=== PATIENT | male | born 1940 | race Caucasian/White ===

== ENCOUNTER → 2017-10-30 | Outpatient (CLI) | payer MEDICARE, OTHER, MEDICAID ==
[2017-10-30] MEDS: REGADENOSON 0.4 MG/5 ML DISP.SYRIN. IV (09:00)
== END | disposition home or self-care (01) ==
LOC: NM 15:55
DX: R06.09 Other forms of dyspnea (principal); I10 Essential (primary) hypertension; Z87.891 Personal history of nicotine dependence; Z79.01 Long term (current) use of anticoagulants
CPT/HCPCS: 78452; 93017; 96374; 96375; 96376; A9500; J2785

== ENCOUNTER 2018-09-10 06:43 | Outpatient (CLI) | payer MEDICARE, OTHER ==
[~2018-09-10] VITALS: Ht 185.4 cm; Wt 88.0 kg
[2018-09-10] VITALS (19 sets, daily range): BP systolic 78–118; BP diastolic 54–68
[2018-09-10 07:26] LABS: BASO # 0.1 x10^3/uL (0.0-0.2); BASO % 1 % (0-3); EOS # 0.3 x10^3/uL (0.0-0.7); EOS % 4 % (0-3); HEMOGLOBIN 13.5 g/dL (13.0-17.5); LYMPH # 1.6 x10^3/uL (1.0-4.8); LYMPH % 18 % (24-48); MEAN CORPUSCULAR HEMOGLOBIN 32 pg (25-35); MEAN CORPUSCULAR HGB CONC 35 g/dL (31-37); MEAN CORPUSCULAR VOLUME 94 fL (79-100); MONO % 12 % (0-9); NEUT # 5.6 x10^3uL (1.8-7.7); NEUT % 65 % (31-73); PLATELET COUNT 307 x10^3/uL (140-400); RED BLOOD COUNT 4.16 x10^6/uL (4.30-5.70); RED CELL DISTRIBUTION WIDTH 12.9 % (11.5-14.5); WHITE BLOOD COUNT 8.6 x10^3/uL (4.0-11.0)
[2018-09-10 07:33] LABS: PROTHROMBIN TIME PATIENT 12.9 SEC (11.7-14.0)
[2018-09-10] MEDS ORDERED: LISI1TAB7 PO (07:33)
[2018-09-10] MEDS ORDERED: AMLO10TA6 PO (07:33)
[2018-09-10] MEDS ORDERED: MIDAZOLAM HCL/PF 2 MG/2 ML VIAL. ONE (07:56)
[2018-09-10] MEDS ORDERED: fentaNYL PF VIAL 100 MCG/2 ML VIAL ONE (07:57)
[2018-09-10] MEDS ORDERED: NALOXONE 0.4 MG/ML VIAL. ONE (07:57)
[2018-09-10] MEDS ORDERED: FLUMAZENIL 0.5 MG/5 ML VIAL. IV ONE (07:57)
[2018-09-10] MEDS ORDERED: LIDOCAINE WITH 8.4% SOD BICARB 3 ML DISP.SYRIN. ONE ×2 (07:58→08:32)
[2018-09-10] MEDS ORDERED: fentaNYL PF VIAL 100 MCG/2 ML VIAL IV ONE (08:15)
[2018-09-10] MEDS ORDERED: LIDOCAINE WITH 8.4% SOD BICARB 3 ML DISP.SYRIN. IJ ONE ×2 (08:15→08:30)
[2018-09-10] MEDS ORDERED: IV NORMAL SALINE 1000ML BAG 1,000 ML IV ONE (09:00)
--- NOTE | 2018-09-10 11:08 | RAD ---
CT-guided biopsy, right middle lobe nodule 09/10/2018 Indication: Right middle lobe pulmonary nodule concerning for primary lung malignancy. Comparison study: Outside CT of the chest dated July 22, 2018 Discussion: The risks and benefits of the procedure were discussed the patient. Informed consent was obtained. A timeout procedure was performed. The right chest was prepped and draped using sterile barrier technique. CT imaging redemonstrates a rounded nodule in the right middle lobe, similar to prior exam. Once an appropriate skin entry site had been selected, 1% lidocaine without epinephrine was administered for local anesthesia. Under intermittent CT guidance a 17-gauge needle was advanced into the periphery of the nodule. Multiple 18-gauge core biopsy samples were obtained. A tewkh-ya-guabesan post biopsy pneumothorax was seen on repeat CT imaging. The anterior chest was then prepped and draped using sterile barrier technique. 1% lidocaine was administered for local anesthesia. A 5 Croatian sheath was advanced into the pleural space. The air was aspirated. After several minutes repeat imaging was performed which did not demonstrate significant reaccumulation of air. Sheath was removed. Sterile dressings were applied. The patient was taken to the recovery area for observation. Anesthesia: Local only Impression: 1. CT-guided biopsy, right middle lobe nodule 2. Post biopsy pneumothorax. Small caliber thoracostomy tube was placed, and the air was aspirated. No rapid recurrence of pneumothorax is identified on delayed imaging. Patient was transferred to the recovery area for observation and follow-up radiographs.
--- NOTE | 2018-09-10 13:55 | RAD ---
Single view of the chest. 09/10/2018 10:46 AM Indication: POST RIGHT LUNG BIOPSY Comparison: CT imaging during biopsy, earlier today Findings: Possible trace pneumothorax seen apically. This is significantly smaller than on chest CT images from earlier today. No pleural effusion is seen. Right basilar lung nodules grossly similar. Heart size is normal. Bony thorax is intact. Impression: Trace pneumothorax, decreased since CT imaging earlier today Electronically signed by: Duncan Kennedy MD (09/10/2018 1:52 PM) [facility]
--- NOTE | 2018-09-11 17:08 | PATHOLOGY ---
[facility] Accession Number: [id number] . 01 Material submitted: . RIGHT LUNG BIOPSY . 01 Clinical history: . Right lung mass . 02 Diagnosis: "Right lung BX", image-guided needle biopsy: - INVASIVE MODERATELY DIFFERENTIATED ADENOCARCINOMA (SEE COMMENT). . (CLW:sherin; 09/11/2018) QMS/09/11/2018 . 02 Comment: Sections show alveolated lung tissue with atypical / malignant glandular epithelial cells infiltrating through a desmoplastic stroma. A background lepidic pattern is also noted. Clinical and radiographic correlation is recommended. The case is co-reviewed with Dr. Fredi Nathan. The case is discussed with Dr. Davila on 09/11/2018 at 3:30 PM. . (CLW:sherin; 09/11/2018) . 02 Electronically signed: . Connie Ayoub MD, Pathologist NPI- [id number] . 01 Gross description: . Received in formalin labeled "Eduardo Ross, right lung BX," are 4 distinct needle cores of blankenship soft tissue ranging from 0.5 to 1.4 cm in length and measuring less than 0.1 cm each in diameter. The specimen is submitted entirely in cassette A1 through A3. (TSD; 09/10/2018) TOB/TOB . 02 Pathologist provided ICD-10: C34.91 . 02 CPT . 061537 Specimen Comment: A courtesy copy of this report has been sent to Specimen Comment: [phone], , . Specimen Comment: Report sent to ,DR DAVILA / DR CLAYTON Performed at: 01 [facility] [address] [place] [address] [address], [place], [place] [id number] MD Clarke Pretty MD Phone: [phone] Performed at: [address] [id number] MD Tony Nathan MD Phone: [phone]
== END 2018-09-10 11:44 | disposition home or self-care (01) ==
LOC: INTRAD 06:43
PROVIDERS: ATTEND Internal Medicine Critical Care Medicine
DX: C34.91 Malignant neoplasm of unspecified part of right bronchus or lung (principal); Z79.899 Other long term (current) drug therapy; Z79.01 Long term (current) use of anticoagulants
CPT/HCPCS: 32405; 36415; 71045; 77012; 85025; 85610; J3010; J7030; 99152; 99153

== ENCOUNTER → 2018-09-12 | Outpatient (CLI) | payer MEDICARE, OTHER ==
[2018-09-10 11:00] VITALS: BP 94/57
[~2018-09-12] MED LIST: AMLO10TA6 PO; LISI1TAB7 PO
--- NOTE | 2018-09-16 08:29 | RAD ---
FDG tumor localization scan, PET/CT, 09/12/2018: History: Right lung mass Following IV injection of 12.2 mCi of 18 F-FDG, imaging was performed from the skull base to the proximal thighs. The noncontrast CT component was performed for attenuation correction and anatomic localization purposes rather than for primary diagnosis. The patient's blood glucose level at the time of injection was 96 MG/DL. Physiologic activity is evident in the neck. No hypermetabolic neck lesion is seen. There is a 2 cm nodule in the posterolateral aspect of the right middle lobe as noted on the outside CT study. It is hypermetabolic with a maximum SUV of 12.9. No other hypermetabolic pulmonary abnormality is seen. No abnormal mediastinal or hilar FDG uptake is evident. Normal GI tract and urinary tract activity is present in the abdomen and pelvis. There are small, bilateral low density adrenal nodules. The outside CT study demonstrated low internal CT number is compatible with benign adenomas. Both nodules demonstrate low level FDG uptake. No hypermetabolic abdominal or pelvic lesion is seen. Incidental CT findings include the presence of complete opacification of the left maxillary sinus with partial opacification of the left ethmoid and frontal sinuses. There appears to be destruction of the medial wall of the left maxillary sinus with soft tissue extending into the left nasal cavity. This portion of the process is hypermetabolic with a maximum SUV of 6.3. Some of the left ethmoid and frontal densities are also hypermetabolic. Some of the material within the left maxillary sinus is not hypermetabolic. There is calcific plaquing of the coronary arteries and at the carotid bifurcations. Scattered degenerative changes are present in the spine. IMPRESSION: 1. Hypermetabolic right middle lobe pulmonary nodule compatible with a primary lung malignancy. 2. No PET/CT evidence of mediastinal or hilar extension. 3. Opacified left maxillary sinus with a hypermetabolic component extending into the left nasal cavity with partial opacification of the left ethmoid and frontal sinuses. While the findings may be due to chronic sinusitis or antrochoanal polyp, malignancy is also a possibility and ENT evaluation is suggested. MTDD
== END | disposition home or self-care (01) ==
LOC: PETSC 10:25
PROVIDERS: ATTEND Internal Medicine Critical Care Medicine
DX: C34.91 Malignant neoplasm of unspecified part of right bronchus or lung (principal); R91.1 Solitary pulmonary nodule; Z87.891 Personal history of nicotine dependence
CPT/HCPCS: 78815

== ENCOUNTER → 2018-10-10 | Outpatient (CLI) | payer MEDICARE, OTHER ==
[2018-09-10 11:00] VITALS: BP 94/57
--- NOTE | 2018-10-10 13:13 | CARD ---
MR#: [id number] Date of Study: 10/10/2018 Ordering Physician: GEM GARCIA, Referring Physician: GEM GARCIA, Tech: Angelica Garcia APPROVED REPORT EXAM: Two-dimensional and M-mode echocardiogram with Doppler and color Doppler. Other Information Quality : AverageHR: 73bpm INDICATION Pre-Op RISK FACTORS Hypertension Smoking 2D DIMENSIONS RVDd3.6 (2.9-3.5cm)Left Atrium(2D)3.6 (1.6-4.0cm) IVSd0.9 (0.7-1.1cm)Aortic Root(2D)3.1 (2.0-3.7cm) LVDd5.0 (3.9-5.9cm)LVOT Diameter2.3 (1.8-2.4cm) PWd0.9 (0.7-1.1cm)LVDs2.8 (2.5-4.0cm) FS (%) 43.6 %SV89.0 ml LVEF(%)74.6 (>50%) Aortic Valve AoV Peak Margarito.130.5cm/sAoV VTI24.4cm AO Peak GR.6.8mmHgLVOT Peak Margarito.113.8cm/s LVOT VTI 19.58cmAO Mean GR.3mmHg SANIYA (VMAX)2.08mz5THY (VTI)3.45cm2 Mitral Valve MV E Bqtxioqj52.7cm/sMV DECEL HLMZ228et MV A Lqxydeqw52.6cm/sMV TYV96or E/A Ratio0.9MVA (PHT)3.43cm2 TDI E/Lateral E'9.6E/Medial E'11.0 Pulmonary Valve PV Peak Vbfbcyye369.6cm/sPV Peak Grad.7mmHg Tricuspid Valve TR P. Bflehurb927kg/sRAP EXZQHOKR3ntBb TR Peak Gr.45hqYrFSEO11lrGp Pulmonary Vein S1 Qarciaai56.5cm/sD2 Rrxuxmyc50.7cm/s PVa fwokhtmp414tvdo LEFT VENTRICLE The left ventricle is normal size. There is normal left ventricular wall thickness. The left ventricu lar systolic function is normal. The Ejection Fraction is 60-65%. There is normal LV segmental wall m otion. RIGHT VENTRICLE The right ventricle is normal size. There is normal right ventricular wall thickness. The right ventr icular systolic function is normal. ATRIA The left atrium size is normal. The right atrium size is normal. The interatrial septum is intact wit h no evidence for an atrial septal defect or patent foramen ovale as noted on 2-D or Doppler imaging. AORTIC VALVE The aortic valve is thickened but opens well. Doppler and Color Flow revealed no significant aortic r egurgitation. There is no significant aortic valvular stenosis. MITRAL VALVE The mitral valve is normal in structure and function. There is no evidence of mitral valve prolapse. There is no mitral valve stenosis. Doppler and Color Flow revealed no mitral valve regurgitation note d. TRICUSPID VALVE The tricuspid valve is not well visualized. Doppler and Color Flow revealed trace tricuspid regurgita tion. There is no tricuspid valve stenosis. PULMONIC VALVE The pulmonic valve is not well visualized. Doppler and Color Flow revealed trace pulmonic valvular re gurgitation. GREAT VESSELS The aortic root is normal in size. The IVC is normal in size and collapses >50% with inspiration. PERICARDIAL EFFUSION There is no evidence of significant pericardial effusion. Critical Notification Critical Value: No <Conclusion> The left ventricular systolic function is normal. The Ejection Fraction is 60-65%. There is normal LV segmental wall motion. Trace tricuspid regurgitation. There is no evidence of significant pericardial effusion. Signed by : Tyler Ahuja, Electronically Approved : 10/10/2018 13:11:26
== END | disposition home or self-care (01) ==
LOC: ECHO 09:25
PROVIDERS: ATTEND Thoracic Surgery (Cardiothoracic Vascular Surgery)
DX: Z01.818 Encounter for other preprocedural examination (principal); I10 Essential (primary) hypertension; F17.200 Nicotine dependence, unspecified, uncomplicated
CPT/HCPCS: 93306

== ENCOUNTER → 2018-10-16 | Outpatient (CLI) | payer MEDICARE, OTHER ==
[2018-09-10 11:00] VITALS: BP 94/57
[~2018-10-16] MED LIST changes: +ACET325T9 PO; +AMIO200T4 PO; +ASPI325T8 PO; +METO25TA4 PO; +OXYC5TAB4 PO; +SENN-22 PO
[2018-10-16 14:06] LABS: BASO # 0.1 x10^3/uL (0.0-0.2); BASO % 1 % (0-3); EOS # 0.4 x10^3/uL (0.0-0.7); EOS % 4 % (0-3); HEMATOCRIT 38.5 % (39.0-53.0); HEMOGLOBIN 13.4 g/dL (13.0-17.5); LYMPH % 23 % (24-48); MEAN CORPUSCULAR HEMOGLOBIN 33 pg (25-35); MEAN CORPUSCULAR HGB CONC 35 g/dL (31-37); MEAN CORPUSCULAR VOLUME 94 fL (79-100); MONO # 0.8 x10^3/uL (0.0-1.1); MONO % 10 % (0-9); NEUT # 5.2 x10^3uL (1.8-7.7); NEUT % 61 % (31-73); PLATELET COUNT 286 x10^3/uL (140-400); RED BLOOD COUNT 4.08 x10^6/uL (4.30-5.70); WHITE BLOOD COUNT 8.5 x10^3/uL (4.0-11.0)
[2018-10-16 14:17] LABS: PROTHROMBIN TIME PATIENT 12.8 SEC (11.7-14.0)
[2018-10-16 14:32] LABS: CALCIUM 9.8 mg/dL (8.5-10.1); GFR 72.6
--- NOTE | 2018-10-16 15:03 | EKG ---
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
--- NOTE | 2018-10-16 16:27 | RAD ---
EXAM: PA and Lateral Views of the Chest DATE: 10/16/2018 3:01 PM INDICATION: post op lung biopsy COMPARISON: PET CT 09/12/2018. Radiograph 05/10/2018 FINDINGS: The heart is not enlarged. Mediastinal and hilar contours are stable. Nodular density projecting over the right lung consistent with known right lung mass. Emphysematous changes are seen. No lobar consolidation. No pleural effusion or pneumothorax. Biapical pleural/parenchymal scarring/thickening is seen. IMPRESSION: No pneumothorax Right lung nodular density consistent with known right lung mass. Electronically signed by: Festus Victoria MD (10/16/2018 4:23 PM) [facility]
== END | disposition home or self-care (01) ==
LOC: SURGPAT 13:11
PROVIDERS: ATTEND Thoracic Surgery (Cardiothoracic Vascular Surgery)
DX: Z01.818 Encounter for other preprocedural examination (principal)
CPT/HCPCS: 36415; 71046; 80048; 85025; 85610; 85730; 87641; 93005

== ENCOUNTER 2018-10-22 07:15 | Inpatient (IN) | payer MEDICARE ==
--- NOTE | 2018-10-21 13:43 | PDOC1 ---
History and Physical Date of Admission Date of Admission DATE: 10/22/18 TIME: 7:30 Identification/Chief Complaint Chief Complaint Lung Ca Source Source: Chart review, Patient History of Present Illness History of Present Illness Mr Ross is a 78-year-old male comes today for a right middle lobectomy for a newly diagnosed adenocarcinoma of the lung. This was an incidental finding on a CT which was performed for shortness of breath. The mass is in the periphery of the right middle lobe and measures 2 cm in maximum diameter. A CT-guided biopsy confirmed a moderately differentiated adenocarcinoma. He had a PET/CT which showed that the mass was FDG avid. There was no activity elsewhere in the mediastinum or distally. He denies any significant shortness of breath, cough, hemoptysis, weight loss, chest pain. He has excellent PFTs with an FEV1 of 2.69 L which is 73% predicted and a DLCO of 92%. Past Medical History Cardiovascular: HTN Pulmonary: COPD GI: No pertinent hx Heme/Onc: No pertinent hx Hepatobiliary: No pertinent hx Psych: No pertinent hx Rheumatologic: No pertinent hx Infectious disease: No pertinent hx ENT: No pertinent hx Renal/: No pertinent hx Endocrine: No pertinent hx Dermatology: No pertinent hx Past Surgical History Past Surgical History: Total knee replacement Family History Family History: No Significant Social History Smoke: Quit (6 months ago) ALCOHOL: none Drugs: None Current Medications Current Medications Current Medications Ondansetron HCl (Zofran) 4 mg PRN Q6HRS PRN IV NAUSEA/VOMITING; Start 10/22/18 at 07:00; Stop 10/23/18 at 06:59 Fentanyl Citrate (Fentanyl 2ml Vial) 25 mcg PRN Q5MIN PRN IV MILD PAIN; Start 10/22/18 at 07:00; Stop 10/23/18 at 06:59 Fentanyl Citrate (Fentanyl 2ml Vial) 50 mcg PRN Q5MIN PRN IV MODERATE TO SEVERE PAIN; Start 10/22/18 at 07:00; Stop 10/23/18 at 06:59 Morphine Sulfate (Morphine Sulfate) 1 mg PRN Q10MIN PRN IV SEVERE PAIN; Start 10/22/18 at 07:00; Stop 10/23/18 at 06:59 Ringer's Solution 1,000 ml @ 30 mls/hr Q24H IV ; Start 10/22/18 at 07:00; Stop 10/22/18 at 18:59 Lidocaine HCl (Xylocaine-Mpf 1% 2ml Vial) 2 ml PRN 1X PRN ID IV START; Start at 07:00; Stop 10/23/18 at 06:59 Hydromorphone HCl (Dilaudid) 0.5 mg PRN Q10MIN PRN IV SEV PAIN, Second choice; Start 10/22/18 at 07:00; Stop 10/23/18 at 06:59 Prochlorperazine Edisylate (Compazine) 5 mg PACU PRN PRN IV NAUSEA, MRX1; Start 10/22/18 at 07:00; Stop 10/23/18 at 06:59 Active Scripts Active Reported Amlodipine Besylate 10 Mg Tablet 10 Mg PO DAILY Lisinopril-Hctz 20-25 Mg Tab (Lisinopril/Hydrochlorothiazide) 1 Each Tablet 1 Tab PO DAILY Allergies Allergies: Coded Allergies: No Known Drug Allergies (Unverified , 10/22/18) ROS General: No: Chills, Night Sweats, Fatigue, Malaise, Appetite PSYCHOLOGICAL ROS: No: Anxiety, Behavioral Disorder, Concentration difficultie , Decreased libido, Depression, Disorientation, Hallucinations, Hostility, Irritablity, Memory difficulties, Mood Swings, Obsessive thoughts, Physical abuse, Sexual abuse, Sleep disturbances, Suicidal ideation Eyes: No Blurry vision, No Decreased vision, No Double vision, No Dry eyes, No Excessive tearing, No Eye Pain, No Itchy Eyes, No Loss of vision, No Photophobia , No Scotomata, No Uses contacts, No Uses glasses HEENT: No: Heacaches, Visual Changes, Hearing change, Nasal congestion, Nasal discharge, Oral lesions, Sinus pain, Sore Throat, Epistaxis, Sneezing, Snoring, Tinnitus, Vertigo, Vocal changes ALLERGY AND IMMUNOLOGY: No: Hives, Insect Bite Sensitivity, Itchy/Watery Eyes, Nasal Congestion, Post Nasal Drip, Seasonal Allergies Hematological and Lymphatic: No: Bleeding Problems, Blood Clots, Blood Transfusions, Brusing, Night Sweats, Pallor, Swollen Lymph Nodes ENDOCRINE: No: Breast Changes, Galactorrhea, Hair Pattern Changes, Hot Flashes , Malaise/lethargy, Mood Swings, Palpitations, Polydipsia/polyuria, Skin Changes , Temperature Intolerance, Unexpected Weight Changes Respiratory: No: Cough, Hemoptysis, Orthopnea, Pleuritic Pain, Shortness of breath, SOB with excertion, Sputum Changes, Stridor, Tachypnea, Wheezing Cardiovascular: No Chest Pain, No Palpitations, No Orthopnea, No Paroxysmal Noc. Dyspnea, No Edema, No Lt Headedness Gastrointestinal: No Nausea, No Vomiting, No Abdominal Pain, No Diarrhea, No Constipation, No Melena, No Hematochezia Genitourinary: No Dysuria, No Frequency, No Incontinence, No Hematuria, No Retention, No Discharge, No Urgency, No Pain, No Flank Pain Musculoskeletal: No Gait Disturbance, No Joint Pain, No Joint Stiffness, No Joint Swelling, No Muscle Pain, No Muscular Weakness, No Pain In:, No Swelling In: Neurological: No Behavorial Changes, No Bowel/Bladder ControlChng, No Confusion , No Dizziness, No Gait Disturbance, No Headaches, No Impaired Coord/balance, No Memory Loss, No Numbness/Tingling, No Seizures, No Speech Problems, No Tremors, No Visual Changes, No Weakness Skin: No Dry Skin, No Eczema, No Hair Changes, No Lumps, No Mole Changes, No Mottling, No Nail Changes, No Pruritus, No Rash, No Skin Lesion Changes, No Acne Physical Exam General: Alert, Oriented X3, No acute distress HEENT: Atraumatic, PERRLA Lungs: Clear to auscultation Heart: S1S2, RRR, no thrills Abdomen: Normal bowel sounds, Soft, No tenderness, No hepatosplenomegaly Rectal Exam: deferred Extremities: No edema Skin: No significant lesion Neuro: Normal gait, Normal speech, Strength at 5/5 X4 ext, Normal tone, Sensation intact, Cranial nerves 3-12 NL, Reflexes 2+ Psych/Mental Status: Mental status NL Vitals Vitals Vital Signs Date Time Temp Pulse Resp B/P (MAP) Pulse Ox O2 Delivery O2 Flow Rate FiO2 10/16/18 13:41 98.7 69 20 98 98.7 Images Images PET-CT Physiologic activity is evident in the neck. No hypermetabolic neck lesion is seen. There is a 2 cm nodule in the posterolateral aspect of the right middle lobe as noted on the outside CT study. It is hypermetabolic with a maximum SUV of 12.9. No other hypermetabolic pulmonary abnormality is seen. No abnormal mediastinal or hilar FDG uptake is evident. Normal GI tract and urinary tract activity is present in the abdomen and pelvis. There are small, bilateral low density adrenal nodules. The outside CT study demonstrated low internal CT number is compatible with benign adenomas. Both nodules demonstrate low level FDG uptake. No hypermetabolic abdominal or pelvic lesion is seen. Incidental CT findings include the presence of complete opacification of the left maxillary sinus with partial opacification of the left ethmoid and frontal sinuses. There appears to be destruction of the medial wall of the left maxillary sinus with soft tissue extending into the left nasal cavity. This portion of the process is hypermetabolic with a maximum SUV of 6.3. Some of the left ethmoid and frontal densities are also hypermetabolic. Some of the material within the left maxillary sinus is not hypermetabolic. There is calcific plaquing of the coronary arteries and at the carotid bifurcations. Scattered degenerative changes are present in the spine. 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 This was an incidental finding on a CT which was performed for shortness of breath. A CT-guided biopsy confirmed a moderately differentiated adenocarcinoma. He had a PET/CT which showed that the mass was FDG avid. There was no activity elsewhere in the mediastinum or distally. He has excellent PFTs with an FEV1 of 2.69 L which is 73% predicted and a DLCO of 92%. He is here for a right middle lobectomy. The risks which include but are not limited to mortality 1-2%, ventilator dependence less than 5%, DVT PE 5%, prolonged air leak 10%, [place] 5%, arrhythmias 20%, were explained to the patient who agrees to proceed. Proceed with bronchoscopy, right middle lobectomy and mediastinal lymphadenectomy GEM GARCIA MD Oct 21, 2018 13:42
[~2018-10-22] VITALS: Ht 185.4 cm; Wt 92.3 kg
[2018-10-22] VITALS (10 sets, daily range): BP systolic 99–134; BP diastolic 53–72
[~2018-10-22 07:15] MED LIST changes: -ACET325T9 PO; -AMIO200T4 PO; -AMLO10TA6 PO; +AMLO10TA8 PO; -ASPI325T8 PO; +HYDROmorphone 2 MG/ML VIAL IV PRN; +IV RINGERS,LACTATED 1000ML 1,000 ML IV SCH; +LIDOCAINE 1% PF 2 ML VIAL. ID PRN; -METO25TA4 PO; +MORPHINE SULFATE 2 MG/ML VIAL. IV PRN; +ONDANSETRON PF 4 MG/2 ML VIAL. IV PRN; -OXYC5TAB4 PO; +PROCHLORPERAZINE 10 MG/2 ML VIAL. IV PRN; -SENN-22 PO; +fentaNYL PF VIAL 100 MCG/2 ML VIAL IV PRN
[2018-10-22] MEDS ORDERED: SURGICEL HEMOSTAT 4X8 EACH. ONE (07:43)
[2018-10-22] MEDS ORDERED: ceFAZolin 2GM PREMIX 2 GM/50 ML BAG IV ONE (08:00)
[2018-10-22] MEDS ORDERED: SEVOFLURANE > 120 MINUTES. IH ONE (08:17)
[2018-10-22] MEDS ORDERED: GLYCOPYRROLATE 1 MG/5 ML VIAL. ONE (08:18)
[2018-10-22] MEDS ORDERED: ONDANSETRON PF 4 MG/2 ML VIAL. ONE (08:18)
[2018-10-22] MEDS ORDERED: MIDAZOLAM HCL/PF 2 MG/2 ML VIAL. ONE (08:18)
[2018-10-22] MEDS ORDERED: LIDOCAINE 2% PF 5 ML VIAL. ONE ×2 (08:18→14:26)
[2018-10-22] MEDS ORDERED: NEOSTIGMINE METHYLSULFATE 5 MG/5 ML SYRINGE. ONE (08:18)
[2018-10-22] MEDS ORDERED: fentaNYL PF VIAL 100 MCG/2 ML VIAL ONE (08:18)
[2018-10-22] MEDS ORDERED: PROPOFOL 20 ML IV ONE (08:18)
[2018-10-22] MEDS ORDERED: PHENYLEPHRINE in 0.9% NACL PF 1 MG/10 ML SYRINGE. IV ONE ×3 (08:18→14:40)
[2018-10-22] MEDS ORDERED: DEXAMETHASONE SOD PHOS 20 MG/5 ML VIAL. ONE (08:18)
[2018-10-22] MEDS ORDERED: ROCURONIUM 50 MG/5 ML VIAL. ONE ×2 (08:18→10:30)
[2018-10-22] MEDS ORDERED: MORPHINE SULFATE 4 MG/ML VIAL. IV PRN (12:39)
[2018-10-22] MEDS ORDERED: SUGAMMADEX SODIUM 200 MG/2 ML VIAL. IVP ONE (13:45)
--- NOTE | 2018-10-22 14:10 | PDOC ---
BRIEF OPERATIVE NOTE Date: Oct 22, 2018 Pre-Op Diagnosis Lung Cancer COPD Post-Op Diagnosis Lung Cancer COPD Procedure Performed Flexible bronchoscopy Right posterolateral thoracotomy Right middle lobectomy and mediastinal lymphadenectomy Surgeon Gem Segovia MD, FACS [employer]tery Sales Clerk DOROTEO Villalpando Anesthesiologist Dr Leach Anesthesia Type: General Blood Loss 250 mls IV Fluid 2600 mls Urine Output 230 mls Specimens Obtained Right middle lobe Levels 6, 9 and 10 lymph nodes Findings Right middle lobe mass Pulmonary emphysema No pathologic mediastinal or hilar nodes Excellent right upper and lower lobe expansion Complications None GEM SEGOVIA MD Oct 22, 2018 14:10
--- NOTE | 2018-10-22 14:12 | PDOC4 ---
Operative Note Operative Note Date Oct 22, 2018 Preoperative diagnosis Lung Cancer COPD Postoperative diagnosis Lung Cancer COPD Procedure performed Flexible bronchoscopy Right posterolateral thoracotomy Right middle lobectomy and mediastinal lymphadenectomy Surgeon Gem Garcia MD, FACS [employer] Handler DOROTEO Villalpando Anesthesiologist Dr Leach Anesthesia type General Blood loss 250 mls IV fluids 2600 mls Urine output 230 mls Specimens obtained Right middle lobe Levels 6, 9 and 10 lymph nodes Findings Right middle lobe mass Pulmonary emphysema No pathologic mediastinal or hilar nodes Excellent right upper and lower lobe expansion Complications None Indication Mr Ross is a 78-year-old male who is here for a right middle lobectomy for a newly diagnosed adenocarcinoma of the lung. This was an incidental finding on a CT which was performed for shortness of breath. The mass is in the periphery of the right middle lobe and measures 2 cm in maximum diameter. A CT-guided biopsy confirmed a moderately differentiated adenocarcinoma. He had a PET/CT which showed that the mass was FDG avid. There was no activity elsewhere in the mediastinum or distally. He denies any significant shortness of breath, cough, hemoptysis, weight loss, chest pain. He has excellent PFTs with an FEV1 of 2.69 L which is 73% predicted and a DLCO of 92%. A right middle lobectomy was indicated. Operation The patient's ID was confirmed using 2 unique identifiers. The right chest was marked. The patient was then transferred to the operating room where an epidural catheter and appropriate monitoring lines were uneventfully placed. Anesthesia was induced by the anesthesiologist and the airway was initially secured with am ET tube. I then proceeded with a flexible bronchoscopy through the ET tube. I inspected the distal trachea, rivera and right mainstem bronchus upper, middle and lower lobe bronchi which were all without abnormalities. In a similar fashion and left-sided airways were also without pathological findings. The ET tube was then exchanged for a double lumen ET tube. The patient was then placed in the left lateral decubitus position with the right side up. The right chest was prepped and draped in the usual sterile surgical fashion. A right posterolateral thoracotomy was performed. Incision was deepened through the subcutaneous tissues, the latissimus dorsi muscle down to the chest wall. The serratus anterior was preserved. The ribs were then counted and the fifth intercostal space was entered. The chest cavity was then explored and there was no evidence of intrapleural spread. There was dense right upper lobe adhesions to the chest wall which were carefully divided. Throughout the case we had issues with lung isolation and had to intermittently ventilate the right lung which caused significant delay. Initially I divided the inferior pulmonary ligament and clearly identified the inferior pulmonary vein. There was a level 9 lymph node which was harvested. Attention was turned to the anterior hilum. The pleura overlying the hilum was divided facet exposing the superior pulmonary vein. The middle lobe branch of the superior pulmonary vein was identified and circumferentially dissected and isolated with a vessel loop. I then proceeded with the oblique fissure dissection. The fissure was partially complete. I initially divided the anterior oblique fissure using the handheld Harmonic. The Harmonic was again used to open the pleura and the lung parenchyma overlying the interlobar pulmonary artery. The fissure posteriorly was also completed. Interlobar PA was identified and dissected proximally until the middle lobe branch was identified. The middle lobe branch was circumferentially dissected and then divided using a vascular load of the endostapler. This clearly exposed the middle lobe bronchus. I then divided the middle lobe vein again using a vascular load. The middle lobe bronchus was then circumferentially dissected and all lymphatic tissue was scraped up onto the specimen which would be removed. Prior to dividing the middle lobe bronchus the lung was inflated confirming aeration of both the upper and lower lobes. Two green staple loads were used to complete the horizontal fissure between the upper and middle lobe. The specimen was removed and sent to pathology. I then proceeded with mediastinal lymph node dissection. I initially dissected out the subcarinal space and identified two level 7 nodes. Several level X nodes were also harvested. I then asked anesthesia to inflate the lungs and the middle lobe bronchial stump was tested under water and there was no evidence of leak. There was one parenchymal air leaks, which was repaired with 4-0 Prolene sutures. I then opened the pleura superior to the azygos and hemiazygos vein but no paratracheal lymph nodes were identified whatsoever. Hemostasis was confirmed. ProGel was applied for hemostasis and to prevent air leaks. Two 28 straight chest tube were placed in an anterior-apical and posterior-apical position through through separate stab incisions in the right anterior lateral chest wall. These were secured with a #1 silk stitch. The right lung was then ventilated. The ribs were reapproximated using four #2 Vicryl sutures. The latissimus dorsi muscle was reapproximated with 2-0 Vicryl. Subcutaneous tissues were also reapproximated with a 2-0 Vicryl. The epidermis was closed with 4-0 Monocryl. Sterile dressings were applied. At the end of procedure the instrument, needle and sponge counts were correct. Anesthesia was reversed , the patient was extubated and transferred to the PACU in stable condition having tolerated the procedure well. GEM GARCIA MD Oct 22, 2018 14:12
[2018-10-22] MEDS ORDERED: MAGNESIUM HYDROXIDE 2,400 MG/30 ML ORAL.SUSP. PO PRN (14:15)
[2018-10-22] MEDS ORDERED: PROCHLORPERAZINE 10 MG/2 ML VIAL. IV PRN (14:15)
[2018-10-22] MEDS ORDERED: diphenhydrAMINE HCL 25 MG CAPSULE PO PRN (14:15)
[2018-10-22] MEDS ORDERED: ACETAMINOPHEN 325 MG TABLET. PO PRN (14:15)
[2018-10-22] MEDS ORDERED: 0.9 % SODIUM CHLORIDE 10 ML DISP.SYRIN. IV PRN (14:15)
[2018-10-22] MEDS ORDERED: ONDANSETRON PF 4 MG/2 ML VIAL. IV PRN (14:15)
[2018-10-22] MEDS ORDERED: NALOXONE 0.4 MG/ML VIAL. IV PRN (14:15)
[2018-10-22] MEDS ORDERED: BISACODYL 10 MG SUPP.RECT. PR PRN (14:15)
[2018-10-22] MEDS ORDERED: LIDOCAINE 1% PF 5 ML VIAL. ONE (14:27)
[2018-10-22] MEDS ORDERED: ALBUMIN HUMAN 5% 250 ML IV ONE (14:45)
--- NOTE | 2018-10-22 14:57 | EKG ---
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
[2018-10-22] MEDS ORDERED: AMIODARONE 150 MG in IV DEXTROSE 5% 100ML 100 ML IV ONE ×4 (15:15)
[2018-10-22] MEDS ORDERED: AMIODARONE 900 MG in IV DEXTROSE 5% 500 ML IV PRN ×4 (15:15)
[2018-10-22] MEDS ORDERED: PHENYLEPHRINE INJ 20 MG in IV NORMAL SALINE 250ML 250 ML IV ONE (15:15)
[2018-10-22] MEDS: BUPIVACAINE MPF 0.75% EPID PRN ×2 (16:00→19:42)
[2018-10-22] MEDS: [UNRECOGNIZED DRUG - OTHER] EPID PRN ×2 (16:00→19:42)
[2018-10-22] MEDS: NORMAL SALINE EPID PRN ×2 (16:00→19:42)
[2018-10-22] MEDS: FENTANYL EPID PRN ×2 (16:00→19:42)
[2018-10-22 16:03] LABS: CALCIUM 7.5 mg/dL (8.5-10.1); GFR 72.6; MAGNESIUM 1.4 mg/dL (1.8-2.4); POTASSIUM 3.7 mmol/L (3.5-5.1)
--- NOTE | 2018-10-22 16:55 | RAD ---
Portable chest, 10/22/2018: HISTORY: Shortness of breath status post right middle lobectomy Comparison is made to a study from 10/16/2012. 2 right chest tubes are now in place. No significant pneumothorax is evident. There are mild mixed interstitial and airspace opacities now present in the right lung. There is mild streaky atelectasis/infiltrate in the left base. No significant pleural fluid is noted. IMPRESSION: 1. Right lung infiltrates have developed suggesting mild pulmonary edema. 2. Mild streaky left basilar atelectasis/infiltrate. Electronically signed by: Genaro Milton MD (10/22/2018 4:51 PM) [facility]
--- NOTE | 2018-10-22 17:00 | NUR ---
Pt arrived to ICU bed 105 from PACU in bed. Pt currently alert and oriented x4. Pt denies pain at this time. Chest tubes in place and connected to continuous suction. Artline intact. Epidural intact. Pt currently on amiodarone and neosynephrine. Surgical dressing intact. No family present. Meal ordered. Consult called to Dr. Davila. Will continue to monitor.
[2018-10-22] MEDS: POTASSIUM CHLORIDE 10MEQ 100 ML IV SCH ×2 (18:08→19:11)
[2018-10-22] MEDS: PHENYLEPHRINE INJ 20 MG in IV NORMAL SALINE 250ML 250 ML IV PRN ×2 (19:11→23:31)
[2018-10-22] MEDS ORDERED: MAGNESIUM SULFATE 2GM 50 ML IV ONE (19:45)
[2018-10-22] MEDS: IPRATRPIUM/ALBUTEROL 0.5/2.5MG 3 ML NEBU. NEB SCH (19:49)
[2018-10-22] MEDS: METOPROLOL TART IMMED RELEASE 25 MG TABLET. PO SCH (21:00)
[2018-10-22] MEDS: SENNOSIDES/DOCUSATE 8.6/50MG TABLET. PO SCH (21:31)
[2018-10-22] MEDS: GABAPENTIN 300 MG CAPSULE. PO SCH (21:31)
[2018-10-22] MEDS: FAMOTIDINE 20 MG TABLET. PO SCH (21:32)
[2018-10-22] MEDS: DOCUSATE SODIUM 100 MG CAPSULE. PO SCH (21:32)
[2018-10-22] MEDS: HEPARIN for SUB-Q USE 5,000 UNIT/ML VIAL. SQ SCH (21:33)
[2018-10-23] VITALS (24 sets, daily range): BP systolic 53–138; BP diastolic 47–68
[2018-10-23] MEDS: FENTANYL EPID PRN ×5 (00:02→21:37)
[2018-10-23] MEDS: BUPIVACAINE MPF 0.75% EPID PRN ×5 (00:02→21:37)
[2018-10-23] MEDS: NORMAL SALINE EPID PRN ×5 (00:02→21:37)
[2018-10-23] MEDS: [UNRECOGNIZED DRUG - OTHER] EPID PRN ×5 (00:02→21:37)
[2018-10-23] MEDS: PHENYLEPHRINE INJ 20 MG in IV NORMAL SALINE 250ML 250 ML IV PRN ×3 (04:49→13:53)
[2018-10-23 06:05] LABS: HEMATOCRIT 36.1 % (39.0-53.0); HEMOGLOBIN 12.3 g/dL (13.0-17.5); RED BLOOD COUNT 3.8 x10^6/uL (4.30-5.70); RED CELL DISTRIBUTION WIDTH 12.7 % (11.5-14.5); WHITE BLOOD COUNT 22.1 x10^3/uL (4.0-11.0)
[2018-10-23] MEDS: GABAPENTIN 300 MG CAPSULE. PO SCH ×3 (06:07→21:35)
[2018-10-23 06:25] LABS: CALCIUM 7.5 mg/dL (8.5-10.1); GFR 72.6; MAGNESIUM 2.2 mg/dL (1.8-2.4); POTASSIUM 4.3 mmol/L (3.5-5.1)
[2018-10-23] MEDS: ELECTROLYTE (ICU) PROTOCOL. MC SCH (07:36)
--- NOTE | 2018-10-23 07:48 | RAD ---
Portable chest, 10/23/2018: HISTORY: Postop thoracotomy Comparison is made to yesterday's study. 2 right chest tubes remain in place. There is no evidence of pneumothorax. There are mild unchanged infiltrates in the right lower chest. Mild left basilar atelectasis/infiltrate has worsened slightly. No significant pleural fluid is seen. The heart size is within normal limits. IMPRESSION: 1. Unchanged right lower chest infiltrates. 2. Worsening mild left basilar atelectasis/infiltrate. Electronically signed by: Genaro Milton MD (10/23/2018 7:43 AM) [facility]
[2018-10-23] MEDS: METOPROLOL TART IMMED RELEASE 25 MG TABLET. PO SCH ×2 (09:00→21:00)
[2018-10-23] MEDS: IPRATRPIUM/ALBUTEROL 0.5/2.5MG 3 ML NEBU. NEB SCH ×4 (09:00→19:45)
[2018-10-23] MEDS: FAMOTIDINE 20 MG TABLET. PO SCH ×2 (09:08→21:35)
[2018-10-23] MEDS: SENNOSIDES/DOCUSATE 8.6/50MG TABLET. PO SCH ×2 (09:08→21:35)
[2018-10-23] MEDS: DOCUSATE SODIUM 100 MG CAPSULE. PO SCH ×2 (09:08→21:35)
[2018-10-23] MEDS: HEPARIN for SUB-Q USE 5,000 UNIT/ML VIAL. SQ SCH ×2 (09:09→21:36)
[2018-10-23] MEDS ORDERED: ALBUMIN HUMAN 5% 250 ML IV ONE (11:45)
--- NOTE | 2018-10-23 12:18 | CONS ---
DATE OF CONSULTATION: ATTENDING PHYSICIAN: Dr. Segovia. REASON FOR CONSULTATION: Lung cancer post-lobectomy. HISTORY OF PRESENT ILLNESS: The patient is a patient of mine in the office. He was found to have a mass about 1.8 cm in the right middle lobe. He underwent biopsy and it confirmed adenocarcinoma. It was early stage. His PFTs were excellent with an FEV1 of 2.69. His PET scan did not show any hypermetabolic activity except in the right middle lobe mass. He was referred to Dr. Segovia. He was considered a surgical candidate. He underwent right middle lobe lobectomy yesterday. His intraoperative course was complicated by development of atrial fibrillation, which has been converted to sinus rhythm. He is, however, requiring Jamie for low blood pressure. He was also at the same time on 12 mcg of epidural with fentanyl and bupivacaine. His chest x-ray has been reviewed. There is no definite pneumothorax. There are some mild interstitial infiltrates in the right lung. There is mild atelectasis left base. There is no definite pneumothorax. PAST MEDICAL HISTORY: Significant for hypertension, history of COPD with excellent FEV1 of 2.69 preop. PAST SURGICAL HISTORY: Total knee replacement. FAMILY HISTORY: Noncontributory to lungs. SOCIAL HISTORY: Quit tobacco 6 months ago. REVIEW OF SYSTEMS: Ten-point system obtained. Pertinent positives discussed in my history of present illness, otherwise noncontributory. All systems that were negative were reviewed as well. He denied any shortness of breath, no cough. He has mild chest wall pain. No headaches, no nausea or vomiting, no diarrhea, no dysuria, no dysphagia. PHYSICAL EXAMINATION: VITAL SIGNS: Reviewed. Blood pressure is stable while on Jamie-Synephrine. Afebrile, pulse ox is 100% on 3 liters. HEENT: Sclerae nonicteric. NECK: Supple. LUNGS: With diminished breath sounds at the bases. CARDIOVASCULAR: Regular. ABDOMEN: Soft. EXTREMITIES: With no pitting edema. LABORATORY DATA: Reviewed. White cell count 22.1. Hemoglobin is 12.3, BUN 14, creatinine 1.0. IMPRESSION: 1. 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 2. Postoperative hypotension/ shock, I suspect probably related to epidural. Clinically, may be component of hypovolemia as well. 3. Abnormal chest x-ray with mild interstitial infiltrates in the right lung, may be related to mild acute lung injury, clinically less likely congestive heart failure. 4. Atrial fibrillation with rapid ventricular response, intraoperatively, which is now resolved. 5. Underlying chronic obstructive pulmonary disease, clinically compensated. RECOMMENDATIONS: 1. Continue to wean vasopressor Jamie-Synephrine. 2. Wean the dose of epidural that may help blood pressure. 3. We will try low-dose albumin. 4. Monitor chest x-rays. 5. Chest tube has no air leak. May change to water seal per Dr. Segovia and hopefully can even come out in the next 24 hours. 6. So far, pathology is pending, but lymph nodes on preliminary frozen section were negative for any metastasis. We will follow the final pathology. 7. Discussed with RN. 8. Monitor white cell count, probably reactive. At this time, we would withhold any antibiotics and monitor white cell count. GARRY VALERIO MD DR: AURORA/giacomo JOB#: [id number] / [id number] CRISTOPHER
--- NOTE | 2018-10-23 12:45 | NUR ---
Dr. Segovia here to see pt, chest tube placed to water seal by him. Instructed to stop the amio drip and begin PO med, decrease epidural rate and tania drip, and to remove arterial line later today.
--- NOTE | 2018-10-23 13:04 | PDOC ---
Progress Note Subjective Subjective Doing well. No pain. Ambulated this morning. No air leak, minimal tube output. Converted back to SR. Still on 75mcg neosynephrine. SBP 110. Pressor requirement most likely secondary to epidural. ROS ROS No nausea No vomiting No pain No rash Vital Sign Vital Signs Vital Signs Date Time Temp Pulse Resp B/P (MAP) Pulse Ox O2 Delivery O2 Flow Rate FiO2 10/23/18 11:00 82 16 138/61 (86) 95 Nasal Cannula 3.0 10/23/18 08:00 98.7 98.7 Physical Exam PHYSICAL EXAM GENERAL: NAD, Alert HEENT: PERRL, OC/OP NECK: Supple, no JVD, no LN LUNGS: Clear HEART: S1S2, no gallop, no murmur ABD: Soft, NT, no organomegaly, no rebound EXT: No edema, no cyanosis PRODUCT INSPECTION SUPERVISOR: Alert, oriented x 3, no focal neurologic deficit SKIN: No rash IV: ok Labs Lab Laboratory Tests Test 10/22/18 15:40 10/23/18 05:50 Sodium Level 132 mmol/L (136-145) 131 mmol/L (136-145) Potassium Level 3.7 mmol/L (3.5-5.1) 4.3 mmol/L (3.5-5.1) Chloride Level 97 mmol/L (98-107) 99 mmol/L (98-107) Carbon Dioxide Level 23 mmol/L (21-32) 24 mmol/L (21-32) Anion Gap 12 (6-14) 8 (6-14) Blood Urea Nitrogen 14 mg/dL (8-26) 14 mg/dL (8-26) Creatinine 1.0 mg/dL (0.7-1.3) 1.0 mg/dL (0.7-1.3) Estimated GFR (Cockcroft-Gault) 72.6 72.6 Glucose Level 227 mg/dL (70-99) 139 mg/dL (70-99) Calcium Level 7.5 mg/dL (8.5-10.1) 7.5 mg/dL (8.5-10.1) Magnesium Level 1.4 mg/dL (1.8-2.4) 2.2 mg/dL (1.8-2.4) White Blood Count 22.1 x10^3/uL (4.0-11.0) Red Blood Count 3.80 x10^6/uL (4.30-5.70) Hemoglobin 12.3 g/dL (13.0-17.5) Hematocrit 36.1 % (39.0-53.0) Mean Corpuscular Volume 95 fL (79-100) Mean Corpuscular Hemoglobin 33 pg (25-35) Mean Corpuscular Hemoglobin Concent 34 g/dL (31-37) Red Cell Distribution Width 12.7 % (11.5-14.5) Platelet Count 324 x10^3/uL (140-400) Objective Assessment POD#1, s/p right middle lobectomy and mediastinal lymphadenectomy. Doing well. No pain. Ambulated this morning. No air leak, minimal tube output. Converted back to SR. Still on 75mcg neosynephrine. SBP 110. Pressor requirement most likely secondary to epidural. Plan Plan of Care Chest tube to water seal Will likely remove one of two chest tubes tomorrow. Reduce epidural dose and wean neosynephrine Switch amiodarone drip to 200mg po BID OK to d/c a-line Continue ambulation and pulm toilet Start small dose b amanda once off pressor tanyard worker consult for postop placement-patient lives on his own GEM GARCIA MD Oct 23, 2018 13:04
[2018-10-23] MEDS ORDERED: PHENYLEPHRINE INJ 80 MG in IV NORMAL SALINE 250ML 250 ML IV PRN (13:45)
[2018-10-23] MEDS: AMIODARONE HCL 200 MG TABLET. PO SCH ×2 (13:51→21:36)
--- NOTE | 2018-10-23 15:10 | NUR ---
SS following for discharge planning. SS reviewed pt's chart and met with pt's RN. Pt's RN reported that pt was from home alone and would need rehab post discharge. PT/OT recommendations for group home unit in chart. SS met with pt in room. Pt reported living in [place], [place] and requested group home unit in [place], [place] with no preference. SS phoned and faxed referral to [facility] in [place], [place], ; fax [phone]. SS will await acceptance decision and will proceed accordingly. Pt's RN notified.
[2018-10-24] VITALS (25 sets, daily range): BP systolic 97–137; BP diastolic 55–93
[2018-10-24] MEDS: MORPHINE SULFATE 4 MG/ML VIAL. IV PRN ×2 (03:16→13:37)
[2018-10-24] MEDS ORDERED: ALBUTEROL SULFATE 2.5 MG/3 ML NEBU. NEB ONE (03:30)
[2018-10-24 04:40] LABS: HEMATOCRIT 32.7 % (39.0-53.0); HEMOGLOBIN 11.3 g/dL (13.0-17.5); RED BLOOD COUNT 3.41 x10^6/uL (4.30-5.70); WHITE BLOOD COUNT 14.9 x10^3/uL (4.0-11.0)
[2018-10-24] MEDS: GABAPENTIN 300 MG CAPSULE. PO SCH ×3 (06:01→21:29)
[2018-10-24 06:28] LABS: CALCIUM 7.2 mg/dL (8.5-10.1); GFR 72.6; POTASSIUM 4.3 mmol/L (3.5-5.1)
--- NOTE | 2018-10-24 08:00 | NUR ---
Patient up to chair with minimal assist. Right chest tube dressing saturated and changed at this time. Patient tolerated well.
--- NOTE | 2018-10-24 08:07 | PDOC ---
Progress Note Subjective Subjective Doing well. No pain. No air leak, minimal tube output. Off neosynephrine. Normotensive and remains in SR. ROS ROS No nausea No vomiting No pain No rash Vital Sign Vital Signs Vital Signs Date Time Temp Pulse Resp B/P (MAP) Pulse Ox O2 Delivery O2 Flow Rate FiO2 10/24/18 06:15 121/58 (79) 10/24/18 06:00 98 20 91 Nasal Cannula 3.0 10/24/18 04:00 98.4 98.4 Physical Exam PHYSICAL EXAM GENERAL: NAD, Alert HEENT: PERRL, OC/OP NECK: Supple, no JVD, no LN LUNGS: Clear HEART: S1S2, no gallop, no murmur ABD: Soft, NT, no organomegaly, no rebound EXT: No edema, no cyanosis MARKET RESEARCH LEAD: Alert, oriented x 3, no focal neurologic deficit SKIN: No rash IV: ok Labs Lab Laboratory Tests Test 10/24/18 03:35 White Blood Count 14.9 x10^3/uL (4.0-11.0) Red Blood Count 3.41 x10^6/uL (4.30-5.70) Hemoglobin 11.3 g/dL (13.0-17.5) Hematocrit 32.7 % (39.0-53.0) Mean Corpuscular Volume 96 fL (79-100) Mean Corpuscular Hemoglobin 33 pg (25-35) Mean Corpuscular Hemoglobin Concent 35 g/dL (31-37) Red Cell Distribution Width 13.0 % (11.5-14.5) Platelet Count 259 x10^3/uL (140-400) Sodium Level 133 mmol/L (136-145) Potassium Level 4.3 mmol/L (3.5-5.1) Chloride Level 99 mmol/L (98-107) Carbon Dioxide Level 29 mmol/L (21-32) Anion Gap 5 (6-14) Blood Urea Nitrogen 12 mg/dL (8-26) Creatinine 1.0 mg/dL (0.7-1.3) Estimated GFR (Cockcroft-Gault) 72.6 Glucose Level 120 mg/dL (70-99) Calcium Level 7.2 mg/dL (8.5-10.1) Magnesium Level 2.1 mg/dL (1.8-2.4) Objective Assessment POD#2, s/p right middle lobectomy and mediastinal lymphadenectomy. Doing well. No pain. No air leak, minimal tube output. Off neosynephrine. Normotensive and remains in SR. Plan Plan of Care D/c chest tube, (the most posterior at the skin) Continue epidural Oral amiodarone 200mg po BID for AFib Continue ambulation and pulm toilet Start small dose b amanda back shoe worker consult for postop placement-patient lives on his own Plan to d/c epidural, last chest tube and manning tomorrow Keep in ICU for one more day GEM GARCIA MD Oct 24, 2018 08:07
--- NOTE | 2018-10-24 08:15 | NUR ---
Dr. Segovia in to see patient. Instructed to have Sammi CORDERO remove chest tube most posterior on the skin. IS at this time 1000. Dr. Segovia instructed to keep manning catheter in for additional day and plan to remove along with Epidural tomorrow.
--- NOTE | 2018-10-24 08:30 | RAD ---
Portable chest, 10/24/2018: HISTORY: Postop evaluation Comparison is made to yesterday's study. 2 right-sided chest tubes remain in place no definite pneumothorax is seen. There are unchanged patchy infiltrates in the right lower chest. Mild retrocardiac left basilar atelectasis/infiltrate appears to have worsened slightly. There is now slight blunting of left lateral costophrenic angle raising the possibility of a small amount of pleural fluid. IMPRESSION: 1. Stable postsurgical changes on the right with mild unchanged patchy infiltrates. 2. Mild left basilar opacities have worsened slightly. Electronically signed by: Genaro Milton MD (10/24/2018 8:26 AM) [facility]
[2018-10-24] MEDS: IPRATRPIUM/ALBUTEROL 0.5/2.5MG 3 ML NEBU. NEB SCH ×4 (08:50→20:02)
[2018-10-24] MEDS: ELECTROLYTE (ICU) PROTOCOL. MC SCH (09:00)
[2018-10-24] MEDS: NORMAL SALINE EPID PRN ×2 (09:19→22:51)
[2018-10-24] MEDS: FAMOTIDINE 20 MG TABLET. PO SCH ×2 (09:19→21:26)
[2018-10-24] MEDS: BUPIVACAINE MPF 0.75% EPID PRN ×2 (09:19→22:51)
[2018-10-24] MEDS: FENTANYL EPID PRN ×2 (09:19→22:51)
[2018-10-24] MEDS: [UNRECOGNIZED DRUG - OTHER] EPID PRN ×2 (09:19→22:51)
[2018-10-24] MEDS: HEPARIN for SUB-Q USE 5,000 UNIT/ML VIAL. SQ SCH ×2 (09:19→21:28)
[2018-10-24] MEDS: METOPROLOL TART IMMED RELEASE 25 MG TABLET. PO SCH ×2 (09:20→21:27)
[2018-10-24] MEDS: AMIODARONE HCL 200 MG TABLET. PO SCH ×2 (09:21→21:27)
[2018-10-24] MEDS: DOCUSATE SODIUM 100 MG CAPSULE. PO SCH ×2 (09:21→21:27)
[2018-10-24] MEDS: SENNOSIDES/DOCUSATE 8.6/50MG TABLET. PO SCH ×2 (09:22→21:27)
--- NOTE | 2018-10-24 11:11 | PDOC ---
PULMONARY PROGRESS NOTES Subjective HAD SHORT RUN OF V-TACH OFF BJ Vitals Vital Signs Date Time Temp Pulse Resp B/P (MAP) Pulse Ox O2 Delivery O2 Flow Rate FiO2 10/24/18 09:21 107 103/56 10/24/18 09:19 22 10/24/18 09:00 95 Nasal Cannula 3.0 10/24/18 07:00 100.1 100.1 General: Alert, No acute distress Lungs: Other (decrease bs) Cardiovascular: S1 Abdomen: Soft Neuro Exam: Alert Extremities: No Edema Skin: Warm Labs Laboratory Tests Test 10/22/18 15:40 10/22/18 16:55 10/23/18 05:50 10/24/18 03:35 Sodium Level 132 mmol/L (136-145) 131 mmol/L (136-145) 133 mmol/L (136-145) Potassium Level 3.7 mmol/L (3.5-5.1) 4.3 mmol/L (3.5-5.1) 4.3 mmol/L (3.5-5.1) Chloride Level 97 mmol/L (98-107) 99 mmol/L (98-107) 99 mmol/L (98-107) Carbon Dioxide Level 23 mmol/L (21-32) 24 mmol/L (21-32) 29 mmol/L (21-32) Anion Gap 12 (6-14) 8 (6-14) 5 (6-14) Blood Urea Nitrogen 14 mg/dL (8-26) 14 mg/dL (8-26) 12 mg/dL (8-26) Creatinine 1.0 mg/dL (0.7-1.3) 1.0 mg/dL (0.7-1.3) 1.0 mg/dL (0.7-1.3) Estimated GFR (Cockcroft-Gault) 72.6 72.6 72.6 Glucose Level 227 mg/dL (70-99) 139 mg/dL (70-99) 120 mg/dL (70-99) Calcium Level 7.5 mg/dL (8.5-10.1) 7.5 mg/dL (8.5-10.1) 7.2 mg/dL (8.5-10.1) Magnesium Level 1.4 mg/dL (1.8-2.4) 2.2 mg/dL (1.8-2.4) 2.1 mg/dL (1.8-2.4) Nasal Screen MRSA (PCR) Negative (Negative) White Blood Count 22.1 x10^3/uL (4.0-11.0) 14.9 x10^3/uL (4.0-11.0) Red Blood Count 3.80 x10^6/uL (4.30-5.70) 3.41 x10^6/uL (4.30-5.70) Hemoglobin 12.3 g/dL (13.0-17.5) 11.3 g/dL (13.0-17.5) Hematocrit 36.1 % (39.0-53.0) 32.7 % (39.0-53.0) Mean Corpuscular Volume 95 fL (79-100) 96 fL (79-100) Mean Corpuscular Hemoglobin 33 pg (25-35) 33 pg (25-35) Mean Corpuscular Hemoglobin Concent 34 g/dL (31-37) 35 g/dL (31-37) Red Cell Distribution Width 12.7 % (11.5-14.5) 13.0 % (11.5-14.5) Platelet Count 324 x10^3/uL (140-400) 259 x10^3/uL (140-400) Laboratory Tests Test 10/24/18 03:35 White Blood Count 14.9 x10^3/uL (4.0-11.0) Red Blood Count 3.41 x10^6/uL (4.30-5.70) Hemoglobin 11.3 g/dL (13.0-17.5) Hematocrit 32.7 % (39.0-53.0) Mean Corpuscular Volume 96 fL (79-100) Mean Corpuscular Hemoglobin 33 pg (25-35) Mean Corpuscular Hemoglobin Concent 35 g/dL (31-37) Red Cell Distribution Width 13.0 % (11.5-14.5) Platelet Count 259 x10^3/uL (140-400) Sodium Level 133 mmol/L (136-145) Potassium Level 4.3 mmol/L (3.5-5.1) Chloride Level 99 mmol/L (98-107) Carbon Dioxide Level 29 mmol/L (21-32) Anion Gap 5 (6-14) Blood Urea Nitrogen 12 mg/dL (8-26) Creatinine 1.0 mg/dL (0.7-1.3) Estimated GFR (Cockcroft-Gault) 72.6 Glucose Level 120 mg/dL (70-99) Calcium Level 7.2 mg/dL (8.5-10.1) Magnesium Level 2.1 mg/dL (1.8-2.4) Medications Active Scripts Medications Dose Route/Sig Max Daily Dose Days Date Category Amlodipine Besylate 10 Mg Tablet 10 Mg PO DAILY 09/10/18 Reported Lisinopril-Hctz 20-25 Mg Tab (Lisinopril/Hydrochlorothiazide) 1 Each Tablet 1 Tab PO DAILY 09/10/18 Reported Impression . 1. 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 2. Postoperative hypotension/ shock, I suspect probably related to epidural. off bj 3. Abnormal chest x-ray with mild interstitial infiltrates in the right lung, may be related to mild acute lung injury, clinically less likely congestive heart failure. 4. Atrial fibrillation with rapid ventricular response, intraoperatively, 5-6 beat V-Tach today 5. Underlying chronic obstructive pulmonary disease, clinically compensated. Plan . 1. off Bj-Synephrine. 2. Wean epidural 3. prn albumin. 4. Monitor chest x-rays. 5. Chest tube has no air leak. water seal per Dr. Segovia and hopefully can even come out in the next 24 hours. 6. So far, pathology is pending, but lymph nodes on preliminary frozen section were negative for any metastasis. We will follow the final pathology. 7. Discussed with RN. 8. Monitor white cell count, probably reactive. At this time, we would withhold any antibiotics and monitor white cell count. GARRY VALERIO MD Oct 24, 2018 11:11
--- NOTE | 2018-10-24 14:20 | PDOC2 ---
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 He tolerated procedure well. Postoperatively he was noted with arrhythmia namely AFIB and also intermittent aberrant conduction. He was asymptomatic at that time. He does not have any hx of arrhythmia or CAD nor valvular disease. Preoperatively he was cleared for this surgery CV mccarthy per Dr. Garcia and noted recently with unremarkable TTE. He has had stress test last yr as well which was unremarkable. He does not use any BB or non dihydropyridine CCB. He is on home ASA. Presently he is on SR, his surgical pain is controlled and still on epidural. Preop he denies any palpitations nor episodes of passing out or dizzy spells. PAST MEDICAL HISTORY Cardiovascular: HTN Pulmonary: COPD CENTRAL NERVOUS SYSTEM: Other (No pertinent history) Heme/Onc: Cancer (RML adenocarcinoma) Hepatobiliary: No pertinent hx Psych: No pertinent hx Musculoskeletal: Osteoarthritis Rheumatologic: No pertinent hx Infectious disease: No pertinent hx ENT: Other (cataract; macular degeneration) PAST SURGICAL HISTORY Past Surgical History: Arthroscopy (right knee repair 1989), Cataract Removal FAMILY HISTORY Family History noncontributory to CV SOCIAL HISTORY Smoke: Quit ALCOHOL: none Drugs: None Lives: Alone CURRENT MEDICATIONS CURRENT MEDICATIONS Current Medications Medications (Trade) Dose Ordered Sig/Rosa Elena Route PRN Reason Start Time Stop Time Status Last Admin Dose Admin Albuterol Sulfate (Ventolin Neb Soln) 2.5 mg 1X ONCE NEB 10/24/18 03:30 10/24/18 03:31 DC 10/24/18 03:36 ALLERGIES ALLERGIES: Coded Allergies: No Known Drug Allergies (Unverified , 10/22/18) ROS Review of System 14 point ROS evaluated with pertinent positives noted per HPI PHYSICAL EXAM General: Alert, Oriented X3, Cooperative, No acute distress HEENT: Atraumatic, Mucous membr. moist/pink Lungs: Other (bibasilar crackles; chest tube ro right chest with serosanguinous drain and surgical dressing intact) Heart: Regular rate (SR), Normal S1, Normal S2, Other (2/6 systolic murmur to LLs border) Abdomen: Soft, No tenderness Extremities: No cyanosis, Other (trace LE edema) Skin: No breakdown, No significant lesion Neuro: Normal speech, Sensation intact Psych/Mental Status: Mental status NL, Mood NL MUSCULOSKELETAL: Osteoarthritic changes both hands VITALS VITALS Vital Signs Date Time Temp Pulse Resp B/P (MAP) Pulse Ox O2 Delivery O2 Flow Rate FiO2 10/24/18 11:29 18 10/24/18 11:25 96 Nasal Cannula 3.0 10/24/18 09:21 107 103/56 10/24/18 07:00 100.1 100.1 LABS Lab: Laboratory Tests Test 10/24/18 03:35 White Blood Count 14.9 x10^3/uL (4.0-11.0) Red Blood Count 3.41 x10^6/uL (4.30-5.70) Hemoglobin 11.3 g/dL (13.0-17.5) Hematocrit 32.7 % (39.0-53.0) Mean Corpuscular Volume 96 fL (79-100) Mean Corpuscular Hemoglobin 33 pg (25-35) Mean Corpuscular Hemoglobin Concent 35 g/dL (31-37) Red Cell Distribution Width 13.0 % (11.5-14.5) Platelet Count 259 x10^3/uL (140-400) Sodium Level 133 mmol/L (136-145) Potassium Level 4.3 mmol/L (3.5-5.1) Chloride Level 99 mmol/L (98-107) Carbon Dioxide Level 29 mmol/L (21-32) Anion Gap 5 (6-14) Blood Urea Nitrogen 12 mg/dL (8-26) Creatinine 1.0 mg/dL (0.7-1.3) Estimated GFR (Cockcroft-Gault) 72.6 Glucose Level 120 mg/dL (70-99) Calcium Level 7.2 mg/dL (8.5-10.1) Magnesium Level 2.1 mg/dL (1.8-2.4) ECHOCARDIOGRAM ECHOCARDIOGRAM <Conclusion> The left ventricular systolic function is normal. The Ejection Fraction is 60-65%. There is normal LV segmental wall motion. Trace tricuspid regurgitation. There is no evidence of significant pericardial effusion. DATE: 10/10/18 1311 STRESS TEST STRESS TEST Conclusion 1. No evidence of EKG changes with stress testing. 2. Normal perfusion at stress/rest. 3. Low risk study. 4. EF > 60%. DATE: 10/30/17 1255 ASSESSMENT/PLAN ASSESSMENT/PLAN 1. Postoperative AFIB: noted paroxysmal episode which is likely induced by his surgery with brief aberrancy as well. Maintaining SR. 2. Lung CA: Adenocarcinoma. S/P RML lobectomy POD#2. Doing well 3. COPD 4. HTN: controlled Recommendations 1. Agree with metoprolol. Amiodarone per CTS. Will arrange for outpt event monitor 2. No further cardiac testing. Continue with home ASA 3. K and Mg are normal. Maintain hydration. Follow up with Dr. Garcia in 4 weeks. 4. Discussed with staff and will call if any further arrhythmias. JOSE WRIGHT MD 10/24/18 1732: CARDIAC CONSULT ASSESSMENT/PLAN ASSESSMENT/PLAN Patient seen and examined. Agree with above nurse practitioner note. Supportive care. Thank you for this consultation. ADALBERTO POWERS APRN Oct 24, 2018 14:20 JOSE WRIGHT MD Oct 24, 2018 17:32
--- NOTE | 2018-10-24 15:45 | NUR ---
Dr. Segovia at the bedside to remove one chest tube. Second chest tube still present to right side.
[2018-10-25] VITALS (12 sets, daily range): BP systolic 92–131; BP diastolic 56–69
[2018-10-25 05:39] LABS: HEMATOCRIT 31.4 % (39.0-53.0); HEMOGLOBIN 10.8 g/dL (13.0-17.5); RED BLOOD COUNT 3.28 x10^6/uL (4.30-5.70)
[2018-10-25] MEDS: GABAPENTIN 300 MG CAPSULE. PO SCH ×3 (05:56→20:28)
[2018-10-25 05:59] LABS: CALCIUM 7.5 mg/dL (8.5-10.1); CREATININE 0.8 mg/dL (0.7-1.3); POTASSIUM 4.2 mmol/L (3.5-5.1)
[2018-10-25] MEDS: IPRATRPIUM/ALBUTEROL 0.5/2.5MG 3 ML NEBU. NEB SCH ×4 (07:38→20:00)
--- NOTE | 2018-10-25 08:22 | RAD ---
Portable chest, 10/25/2018: HISTORY: Postop right middle lobectomy Comparison is made to yesterday's study. The pulmonary apices are not completely included on the current exam. One right chest tube remains in place. There is no evidence of significant pneumothorax. The heart size is unchanged. Right midlung infiltrate appears to have worsened slightly. There are mild ongoing left basilar opacities suggesting infiltrate and a probable small amount pleural fluid. No significant right-sided pleural fluid is seen. IMPRESSION: 1. Right mid lung infiltrates have worsened slightly. 2. Unchanged mild left basilar atelectasis/infiltrate and probable pleural fluid. 3. No significant pneumothorax. Electronically signed by: Genaro Milton MD (10/25/2018 8:18 AM) [facility]
[2018-10-25] MEDS: ELECTROLYTE (ICU) PROTOCOL. MC SCH (09:00)
[2018-10-25] MEDS: DOCUSATE SODIUM 100 MG CAPSULE. PO SCH ×2 (09:09→20:28)
[2018-10-25] MEDS: HEPARIN for SUB-Q USE 5,000 UNIT/ML VIAL. SQ SCH ×2 (09:09→20:32)
[2018-10-25] MEDS: AMIODARONE HCL 200 MG TABLET. PO SCH ×2 (09:10→20:29)
[2018-10-25] MEDS: METOPROLOL TART IMMED RELEASE 25 MG TABLET. PO SCH ×2 (09:10→20:29)
[2018-10-25] MEDS: FAMOTIDINE 20 MG TABLET. PO SCH ×2 (09:11→20:28)
[2018-10-25] MEDS: SENNOSIDES/DOCUSATE 8.6/50MG TABLET. PO SCH ×2 (09:11→20:28)
--- NOTE | 2018-10-25 10:10 | PATHOLOGY ---
[facility] Accession Number: [id number] . 01 Material submitted: . PART A: LEVEL 9 LYMPH NODE PART B: LEVEL 10 LYMPH NODE PART C: RIGHT MIDDLE LOBE PART D: LEVEL 7 LYMPH NODE . 01 Clinical history: . Lung cancer . 02 Diagnosis: A. Segments of lymph node and fibroadipose tissue, level 9 lymph node biopsies: - Sinus histiocytosis and anthracosis - negative for tumor. . B. Segments of lymph node, fibroadipose, and lung tissue,level 10 lymph node biopsies: - Sinus histocytosis and anthracosis - negative for tumor. . C. Lung lobe, right middle lobectomy: - INVASIVE PULMONARY ACINAR ADENOCARCINOMA, MODERATELY TO FOCALLY POORLY DIFFERENTIATED, FORMING A PERIPHERAL LUNG MASS WITH CENTRAL SCAR MEASURING 2.2 CM IN GREATEST DIMENSION, AND SHOWING FOCAL TUMOR INVASION OF VISCERAL PLEURA. SEE SYNOPTIC REPORT. - Bronchial margin of resection negative for tumor. - Pulmonary vascular margins of resection negative for tumor. - Focal recent intraalveolar hemorrhage adjacent to tumor. . D. Segments of lymph node and fibroadipose tissue, level 7 lymph node biopsies: - Sinus histiocytosis and anthracosis - negative for tumor. . Surgical Pathology Cancer Case Summary . Protocol posting date: March 2017 . LUNG: . Procedure ___ Lobectomy . Specimen Laterality ___ Right . Tumor Site ___ Middle lobe of lung . Tumor Size Greatest dimension: 2.2 cm . Tumor Focality ___ Single tumor . Histologic Type ___ Other histologic type not listed: Pulmonary acinar adenocarcinoma . + Histologic Grade + ___ Other: Moderately to focally poorly differentiated. . + Spread Through Air Spaces + ___ Not identified . Visceral Pleura Invasion ___ Present . Lymphovascular Invasion ___ Not identified . . Margins ___ All margins are uninvolved by tumor Margins examined: Bronchial and vascular margins. Distance of invasive carcinoma from closest margin: 4.4 cm Specify closest margin: Bronchial margin . Treatment Effect (Note I) ___ No known presurgical therapy . Regional Lymph Nodes Number of Lymph Nodes Involved: 0 . Number of Lymph Nodes Examined: 3 Specify julian station(s) examined: Level 9, level 10, and level 7 . Pathologic Stage Classification (pTNM, AJCC 8th Edition) . Primary Tumor (pT) ___ pT2: Tumor >3 cm but =5 cm or having any of the following features:# Invades visceral pleura (PL1 or PL2); . Regional Lymph Nodes (pN) ___ pN0:No regional lymph node metastasis . + Additional Pathologic Findings + ___ None identified [facility]/10/24/2018 . 02 Comment: The case is also examined by Dr. Sow, who concurs with the diagnosis. . The diagnosis in this case is formulated and dictated by Dr. Nathan. This case is signed out electronically by Dr. Sow for Dr. Nathan. . . (JPM:[facility] 10/24/2018) . 02 Electronically signed: . Neville Sow MD, Pathologist NPI- [id number] . 01 Gross description: . A. The specimen is received in formalin, labeled "Eduardo Cody, level IX lymph node". Received are multiple segments of bright yellow to black lobulated tissue measuring 1.5 x 0.6 x 0.3 cm in aggregate dimensions. Dissection and palpation of specimen reveals two possible lymph nodes measuring 0.2 and 0.5 cm in maximum dimensions. The lymph nodes are submitted entirely in cassette A1. . B. The specimen is received in formalin, labeled "Eduardo Cody, level X lymph node". Received are multiple segments of bright yellow to black lobulated tissue measuring 1.7 x 1.4 x 0.4 cm in aggregate dimensions. Dissection and palpation of the specimen reveals four possible lymph nodes ranging in size from 0.4 to 1.3 cm in maximum dimensions. The lymph nodes are submitted intact in cassette B1. . C. The specimen is received in formalin, labeled "Eduardo Cody, right middle lobe". Received is a 187 g lobectomy specimen with a stapled margin of resection measuring 11.7 x 10.5 x 4.8 cm in greatest dimensions. The pleural surface is pink-blankenship to pink-kirkland and focally puckered in appearance. There is a palpable firm mass in the puckered area. The pleural surface of this area is inked blue. Sectioning reveals a well-circumscribed pale blankenship to kirkland-blankenship mass measuring 2.2 x 2.0 x 1.7 cm in greatest dimensions, which grossly abuts the inked pleural surface, grossly abuts a secondary bronchiole, and is 4.4 cm from the bronchial margin. The remainder of the lung parenchyma is pink-blankenship to red-blankenship and spongy with no additional nodules or lesions noted grossly. The specimen is submitted representatively as follows: . C1 bronchial margin, en face C2-C3 service support representative sections of mass to show relationship with inked pleural surface C4-C5 service support representative sections of mass to show relationship with secondary bronchiole C6 uninvolved lung parenchyma. . D. The specimen is received in formalin, labeled "Eduardo Ross, level VII lymph node". Received are multiple segments of black lobulated-appearing tissue measuring 1.7 x 1.6 x 0.5 cm in aggregate dimensions. The specimen is submitted entirely in cassette D1. (CAA; 10/23/2018) QAC/QAC . 02 Pathologist provided ICD-10: C34.2 . 02 CPT . 750831, 488165, 982258 Specimen Comment: A courtesy copy of this report has been sent to Specimen Comment: [phone]. Specimen Comment: A duplicate report has been generated due to demographic updates. Performed at: [facility] [address] [facility] [address], [place] [id number] MD Clarke Pretty MD Phone: [phone] Performed at: 02 [facility] [address] [id number] MD Yury Sears MD Phone: [phone]
[2018-10-25] MEDS: [UNRECOGNIZED DRUG - OTHER] EPID PRN (11:35)
[2018-10-25] MEDS: BUPIVACAINE MPF 0.75% EPID PRN (11:35)
[2018-10-25] MEDS: FENTANYL EPID PRN (11:35)
[2018-10-25] MEDS: NORMAL SALINE EPID PRN (11:35)
--- NOTE | 2018-10-25 11:43 | PDOC ---
Progress Note Subjective Subjective Doing well. No pain. No air leak, minimal tube output. Normotensive and remains in SR. ROS ROS No nausea No vomiting No pain No rash Vital Sign Vital Signs Vital Signs Date Time Temp Pulse Resp B/P (MAP) Pulse Ox O2 Delivery O2 Flow Rate FiO2 10/25/18 11:36 97 Nasal Cannula 3.0 10/25/18 11:35 16 10/25/18 09:10 100 135/75 10/25/18 04:00 99.2 99.2 Physical Exam PHYSICAL EXAM GENERAL: NAD, Alert HEENT: PERRL, OC/OP NECK: Supple, no JVD, no LN LUNGS: Clear HEART: S1S2, no gallop, no murmur ABD: Soft, NT, no organomegaly, no rebound EXT: No edema, no cyanosis NEMATOLOGY TEACHER: Alert, oriented x 3, no focal neurologic deficit SKIN: No rash IV: ok Labs Lab Laboratory Tests Test 10/25/18 05:00 White Blood Count 13.0 x10^3/uL (4.0-11.0) Red Blood Count 3.28 x10^6/uL (4.30-5.70) Hemoglobin 10.8 g/dL (13.0-17.5) Hematocrit 31.4 % (39.0-53.0) Mean Corpuscular Volume 96 fL (79-100) Mean Corpuscular Hemoglobin 33 pg (25-35) Mean Corpuscular Hemoglobin Concent 34 g/dL (31-37) Red Cell Distribution Width 13.0 % (11.5-14.5) Platelet Count 228 x10^3/uL (140-400) Sodium Level 129 mmol/L (136-145) Potassium Level 4.2 mmol/L (3.5-5.1) Chloride Level 96 mmol/L (98-107) Carbon Dioxide Level 25 mmol/L (21-32) Anion Gap 8 (6-14) Blood Urea Nitrogen 9 mg/dL (8-26) Creatinine 0.8 mg/dL (0.7-1.3) Estimated GFR (Cockcroft-Gault) 94.0 Glucose Level 117 mg/dL (70-99) Calcium Level 7.5 mg/dL (8.5-10.1) Objective Assessment POD#3, s/p right middle lobectomy and mediastinal lymphadenectomy. Doing well. No pain. No air leak, minimal tube output. Normotensive and remains in SR. Plan Plan of Care Clamp chest tube, then CXR this afternoon. If CXR OK, will d/c chest tube D/c epidural D/c manning Oral amiodarone 200mg po BID for AFib Continue ambulation and pulm toilet Small dose b amanda nozzle worker consult for postop placement-patient lives on his own Transfer to stepdown GEM GARCIA MD Oct 25, 2018 11:43
--- NOTE | 2018-10-25 12:03 | PDOC ---
PULMONARY PROGRESS NOTES Subjective no soa Vitals Vital Signs Date Time Temp Pulse Resp B/P (MAP) Pulse Ox O2 Delivery O2 Flow Rate FiO2 10/25/18 11:36 97 Nasal Cannula 3.0 10/25/18 11:35 16 10/25/18 09:10 100 135/75 10/25/18 04:00 99.2 99.2 General: Alert, No acute distress Lungs: Clear Cardiovascular: S1 Abdomen: Soft Neuro Exam: Alert Extremities: No Edema Skin: Warm Labs Laboratory Tests Test 10/24/18 03:35 10/25/18 05:00 White Blood Count 14.9 x10^3/uL (4.0-11.0) 13.0 x10^3/uL (4.0-11.0) Red Blood Count 3.41 x10^6/uL (4.30-5.70) 3.28 x10^6/uL (4.30-5.70) Hemoglobin 11.3 g/dL (13.0-17.5) 10.8 g/dL (13.0-17.5) Hematocrit 32.7 % (39.0-53.0) 31.4 % (39.0-53.0) Mean Corpuscular Volume 96 fL (79-100) 96 fL (79-100) Mean Corpuscular Hemoglobin 33 pg (25-35) 33 pg (25-35) Mean Corpuscular Hemoglobin Concent 35 g/dL (31-37) 34 g/dL (31-37) Red Cell Distribution Width 13.0 % (11.5-14.5) 13.0 % (11.5-14.5) Platelet Count 259 x10^3/uL (140-400) 228 x10^3/uL (140-400) Sodium Level 133 mmol/L (136-145) 129 mmol/L (136-145) Potassium Level 4.3 mmol/L (3.5-5.1) 4.2 mmol/L (3.5-5.1) Chloride Level 99 mmol/L (98-107) 96 mmol/L (98-107) Carbon Dioxide Level 29 mmol/L (21-32) 25 mmol/L (21-32) Anion Gap 5 (6-14) 8 (6-14) Blood Urea Nitrogen 12 mg/dL (8-26) 9 mg/dL (8-26) Creatinine 1.0 mg/dL (0.7-1.3) 0.8 mg/dL (0.7-1.3) Estimated GFR (Cockcroft-Gault) 72.6 94.0 Glucose Level 120 mg/dL (70-99) 117 mg/dL (70-99) Calcium Level 7.2 mg/dL (8.5-10.1) 7.5 mg/dL (8.5-10.1) Magnesium Level 2.1 mg/dL (1.8-2.4) Laboratory Tests Test 10/25/18 05:00 White Blood Count 13.0 x10^3/uL (4.0-11.0) Red Blood Count 3.28 x10^6/uL (4.30-5.70) Hemoglobin 10.8 g/dL (13.0-17.5) Hematocrit 31.4 % (39.0-53.0) Mean Corpuscular Volume 96 fL (79-100) Mean Corpuscular Hemoglobin 33 pg (25-35) Mean Corpuscular Hemoglobin Concent 34 g/dL (31-37) Red Cell Distribution Width 13.0 % (11.5-14.5) Platelet Count 228 x10^3/uL (140-400) Sodium Level 129 mmol/L (136-145) Potassium Level 4.2 mmol/L (3.5-5.1) Chloride Level 96 mmol/L (98-107) Carbon Dioxide Level 25 mmol/L (21-32) Anion Gap 8 (6-14) Blood Urea Nitrogen 9 mg/dL (8-26) Creatinine 0.8 mg/dL (0.7-1.3) Estimated GFR (Cockcroft-Gault) 94.0 Glucose Level 117 mg/dL (70-99) Calcium Level 7.5 mg/dL (8.5-10.1) Medications Active Scripts Medications Dose Route/Sig Max Daily Dose Days Date Category Amlodipine Besylate 10 Mg Tablet 10 Mg PO DAILY 09/10/18 Reported Lisinopril-Hctz 20-25 Mg Tab (Lisinopril/Hydrochlorothiazide) 1 Each Tablet 1 Tab PO DAILY 09/10/18 Reported Comments REVIEWED 10/25 Impression . 1. 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 2. Postoperative hypotension/ shock, RESOLVED. 3. Abnormal chest x-ray with mild interstitial infiltrates in the right lung, may be related to mild acute lung injury, clinically less likely congestive heart failure. Now with increasing infiltrates.? infectious etiology. low grade fever, mildly elevated wbc, add abx 4. Atrial fibrillation with rapid ventricular response, intraoperatively, 5-6 beat V-Tach today 5. Underlying chronic obstructive pulmonary disease, clinically compensated. Plan . 1. ADD ABX 2. OFF epidural 4. Monitor chest x-rays. 5. Chest tube has no air leak. water seal per Dr. Segovia and hopefully can even come out in the next 24 hours. 6. So far, pathology is pending, but lymph nodes on preliminary frozen section were negative for any metastasis. We will follow the final pathology. 7. Discussed with RN. 8. Monitor white cell count, GARRY VALERIO MD Oct 25, 2018 12:03
--- NOTE | 2018-10-25 13:21 | PDOC ---
CARDIOLOGY PROGRESS NOTE SUBJECTIVE: No acute events. Mild discomfort from CT, but otherwise denies any issues. No palpitations. OBJECTIVE: Vital SIgns: Vital Signs Date Time Temp Pulse Resp B/P (MAP) Pulse Ox O2 Delivery O2 Flow Rate FiO2 10/25/18 11:36 97 Nasal Cannula 3.0 10/25/18 11:35 16 10/25/18 09:10 100 135/75 10/25/18 04:00 99.2 99.2 I & O -1.8 L Objective: A/O x 3. NAD CVS Irr irr. PULM: Bilateral rhonchi and basilar rales Soft abd No edema. CURRENT MEDICATIONS: Metoprolol 12.5mg bid Amiodarone 200mg bid. DIAGNOSTIC TESTING: Cr stable Hgb slightly decreased CXR reviewed. ASSESSMENT: 1. Post-op Afib PLAN: 1. Continue amiodarone and Metoprolol 2. Uptitrate Metoprolol as BP allows 3. When cleared by CT surgery, if still in afib, consider low dose anticoagulation after discharge. Will defer to CT surgery regarding bleeding risk. If in SR, will f/u in the office with an event monitor to assess burden in 1-2 months. Thanks. JOSE WRIGHT MD Oct 25, 2018 13:21
--- NOTE | 2018-10-25 13:41 | NUR ---
SS following up with discharge planning. SS received notification that pt has been accepted to [facility] nursing home unit.
[2018-10-25] MEDS ORDERED: METOPROLOL TARTRATE 5 MG/5 ML VIAL. IVP ONE (14:30)
[2018-10-25] MEDS ORDERED: METOPROLOL TART IMMED RELEASE 25 MG TABLET. PO ONE (14:30)
[2018-10-25] MEDS: cefTRIAXone IV Push 1 GM VIAL. IVP SCH (15:34)
--- NOTE | 2018-10-25 16:05 | RAD ---
Single view of the chest. 10/25/2018 3:03 PM Indication: RIGHT CHEST TUBE CLAMPED, ASSESS FOR PTX Comparison: Chest radiograph, earlier today Findings: Right thoracostomy tube remains in place. A definitive pneumothorax is not seen. Right mid and lower lung opacities are unchanged. Probable small left pleural effusion noted. No acute osseous changes are noted in the interim. Heart size is stable. IMPRESSION: 1. Right thoracostomy tube, stable in position. No definitive pneumothorax. 2. Right mid and lower lung opacities are unchanged. Electronically signed by: Duncan Kennedy MD (10/25/2018 4:01 PM) [id number]
--- NOTE | 2018-10-25 16:34 | PDOC ---
Provider Note Provider Note POD # 3 Per surgeon's request, epidural cath pulled with tip intact. Further care per primary team. DOTTIE PARIKH MD Oct 25, 2018 16:34
[2018-10-25] MEDS ORDERED: DIGOXIN IV 500 MCG/2 ML AMPUL. IV ONE (16:45)
[2018-10-26 03:43] VITALS: BP 112/70
[2018-10-26] MEDS: oxyCODONE IR 5 MG TABLET PO PRN ×3 (03:57→09:31)
[2018-10-26] MEDS: GABAPENTIN 300 MG CAPSULE. PO SCH ×3 (05:56→22:20)
[2018-10-26 07:00] VITALS: BP 111/77
[2018-10-26] MEDS: AMIODARONE HCL 200 MG TABLET. PO SCH ×2 (08:16→22:23)
[2018-10-26] MEDS: DOCUSATE SODIUM 100 MG CAPSULE. PO SCH ×2 (08:16→22:20)
[2018-10-26] MEDS: FAMOTIDINE 20 MG TABLET. PO SCH ×2 (08:16→22:20)
[2018-10-26] MEDS: ASPIRIN 325 MG TABLET PO SCH (08:16)
[2018-10-26] MEDS: SENNOSIDES/DOCUSATE 8.6/50MG TABLET. PO SCH ×2 (08:16→22:20)
[2018-10-26] MEDS: METOPROLOL TART IMMED RELEASE 25 MG TABLET. PO SCH ×2 (08:17→22:20)
[2018-10-26] MEDS: HEPARIN for SUB-Q USE 5,000 UNIT/ML VIAL. SQ SCH ×2 (08:18→22:28)
[2018-10-26] MEDS: IPRATRPIUM/ALBUTEROL 0.5/2.5MG 3 ML NEBU. NEB SCH ×4 (08:22→20:06)
[2018-10-26] MEDS: ELECTROLYTE (ICU) PROTOCOL. MC SCH (09:00)
--- NOTE | 2018-10-26 09:03 | RAD ---
PORTABLE CHEST 1V Clinical Indication: S/P RIGHT MIDDLE LOBECTOMY Comparison: AP chest, prior day. Findings: Right chest tube has been removed. The cardiomediastinal silhouette is stable. Right mid and lower lung airspace opacities are unchanged. There is no pneumothorax. Small left pleural effusion is unchanged. No acute bone abnormality. Trace right lateral chest wall subcutaneous air. IMPRESSION: 1. Right chest tube has been removed. No appreciable pneumothorax. 2. Right mid and lower lung airspace opacities are unchanged. 3. Small left pleural effusion is unchanged. Electronically signed by: Lauri Wei MD (10/26/2018 8:59 AM) [facility]
[2018-10-26 11:00] VITALS: BP 110/66
--- NOTE | 2018-10-26 11:38 | PDOC ---
Progress Note Subjective Subjective Doing well. Pain well controlled since epidural was removed. CXR looks good post chest tube removal. Normotensive and back in and out of AFib. Voiding after manning removal. Pathology confirms a T2a (for visceral pleural involvement) N0M0, stage IB adenoCa ROS ROS No nausea No vomiting No pain No rash Vital Sign Vital Signs Vital Signs Date Time Temp Pulse Resp B/P (MAP) Pulse Ox O2 Delivery O2 Flow Rate FiO2 10/26/18 10:33 18 94 Room Air 3.0 10/26/18 08:17 98 111/77 10/26/18 07:00 97.9 97.9 Physical Exam PHYSICAL EXAM GENERAL: NAD, Alert HEENT: PERRL, OC/OP NECK: Supple, no JVD, no LN LUNGS: Clear HEART: S1S2, no gallop, no murmur ABD: Soft, NT, no organomegaly, no rebound EXT: No edema, no cyanosis MANAGER BUDGET: Alert, oriented x 3, no focal neurologic deficit SKIN: No rash IV: ok Objective Assessment POD#4, s/p right middle lobectomy and mediastinal lymphadenectomy. Doing well. Pain well controlled since epidural was removed. CXR looks good post chest tube removal. Normotensive and back in and out of AFib. Voiding after manning removal. Pathology confirms a T2a (for visceral pleural involvement) N0M0, stage IB adenoCa Plan Plan of Care Oral amiodarone 200mg po BID and metoprolol for AFib Continue ambulation and pulm toilet Heparin s/q for DVT prophylaxis calender worker helper and PT/OT to decide on placement-patient lives on his own Plan d/c rehab tomorrow or Sunday GEM GARCIA MD Oct 26, 2018 11:38
--- NOTE | 2018-10-26 12:44 | PDOC ---
PULMONARY PROGRESS NOTES Subjective no soa Vitals Vital Signs Date Time Temp Pulse Resp B/P (MAP) Pulse Ox O2 Delivery O2 Flow Rate FiO2 10/26/18 12:13 94 Room Air 10/26/18 11:00 98.3 98 20 110/66 (81) 98.3 10/26/18 10:33 3.0 General: Alert, No acute distress Lungs: Clear Cardiovascular: S1 Abdomen: Soft Neuro Exam: Alert Extremities: No Edema Skin: Warm Labs Laboratory Tests Test 10/25/18 05:00 White Blood Count 13.0 x10^3/uL (4.0-11.0) Red Blood Count 3.28 x10^6/uL (4.30-5.70) Hemoglobin 10.8 g/dL (13.0-17.5) Hematocrit 31.4 % (39.0-53.0) Mean Corpuscular Volume 96 fL (79-100) Mean Corpuscular Hemoglobin 33 pg (25-35) Mean Corpuscular Hemoglobin Concent 34 g/dL (31-37) Red Cell Distribution Width 13.0 % (11.5-14.5) Platelet Count 228 x10^3/uL (140-400) Sodium Level 129 mmol/L (136-145) Potassium Level 4.2 mmol/L (3.5-5.1) Chloride Level 96 mmol/L (98-107) Carbon Dioxide Level 25 mmol/L (21-32) Anion Gap 8 (6-14) Blood Urea Nitrogen 9 mg/dL (8-26) Creatinine 0.8 mg/dL (0.7-1.3) Estimated GFR (Cockcroft-Gault) 94.0 Glucose Level 117 mg/dL (70-99) Calcium Level 7.5 mg/dL (8.5-10.1) Medications Active Scripts Medications Dose Route/Sig Max Daily Dose Days Date Category Amlodipine Besylate 10 Mg Tablet 10 Mg PO DAILY 09/10/18 Reported Lisinopril-Hctz 20-25 Mg Tab (Lisinopril/Hydrochlorothiazide) 1 Each Tablet 1 Tab PO DAILY 09/10/18 Reported Comments REVIEWED 10/26 chest tube t/ unchanged RML infiltrate Impression . 1. 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 2. Postoperative hypotension/ shock, RESOLVED. 3. Abnormal chest x-ray with RML infiltrates.? infectious etiology. low grade fever, mildly elevated wbc, added abx 10/25, fever resolved. 4. Atrial fibrillation with rapid ventricular response, intraoperatively, 5-6 beat V-Tach today 5. Underlying chronic obstructive pulmonary disease, clinically compensated. Plan . 1. ABX 2. IS 4. Monitor chest x-rays. 5. Chest tube out 6. So far, pathology is pending, but lymph nodes on preliminary frozen section were negative for any metastasis. We will follow the final pathology. 7. Discussed with RN. 8. Monitor white cell count, 9. Rehab Sunday GARRY VALERIO MD Oct 26, 2018 12:44
[2018-10-26] MEDS: cefTRIAXone IV Push 1 GM VIAL. IVP SCH (13:38)
[2018-10-26] MEDS: KETOROLAC 15 MG/ML VIAL. IV PRN (13:38)
[2018-10-26 15:00] VITALS: BP_SYST 101; BP_SYST 162; BP_DIAS 65; BP_DIAS 82
[2018-10-26 19:35] VITALS: BP 118/69
[2018-10-26 23:55] VITALS: BP 116/68
[2018-10-27 03:32] VITALS: BP 120/75
[2018-10-27 05:25] LABS: HEMATOCRIT 33.4 % (39.0-53.0); HEMOGLOBIN 11.6 g/dL (13.0-17.5); RED BLOOD COUNT 3.52 x10^6/uL (4.30-5.70); RED CELL DISTRIBUTION WIDTH 12.8 % (11.5-14.5); WHITE BLOOD COUNT 10.8 x10^3/uL (4.0-11.0)
[2018-10-27] MEDS: GABAPENTIN 300 MG CAPSULE. PO SCH ×3 (05:41→20:27)
[2018-10-27] MEDS: KETOROLAC 15 MG/ML VIAL. IV PRN ×2 (05:41→20:27)
[2018-10-27] MEDS: IPRATRPIUM/ALBUTEROL 0.5/2.5MG 3 ML NEBU. NEB SCH ×4 (07:26→19:38)
[2018-10-27 07:30] VITALS: BP 116/60
[2018-10-27] MEDS: SENNOSIDES/DOCUSATE 8.6/50MG TABLET. PO SCH ×2 (08:01→20:27)
[2018-10-27] MEDS: DOCUSATE SODIUM 100 MG CAPSULE. PO SCH ×2 (08:01→20:26)
[2018-10-27] MEDS: ASPIRIN 325 MG TABLET PO SCH (08:01)
[2018-10-27] MEDS: AMIODARONE HCL 200 MG TABLET. PO SCH ×2 (08:02→20:26)
[2018-10-27] MEDS: oxyCODONE IR 5 MG TABLET PO PRN (08:02)
[2018-10-27] MEDS: FAMOTIDINE 20 MG TABLET. PO SCH ×2 (08:03→20:27)
[2018-10-27] MEDS: METOPROLOL TART IMMED RELEASE 25 MG TABLET. PO SCH ×2 (08:03→20:27)
[2018-10-27] MEDS: HEPARIN for SUB-Q USE 5,000 UNIT/ML VIAL. SQ SCH ×2 (08:06→20:35)
[2018-10-27] MEDS: ELECTROLYTE (ICU) PROTOCOL. MC SCH (08:07)
--- NOTE | 2018-10-27 09:32 | RAD ---
PORTABLE CHEST 1V Clinical Indication: S/P RIGHT MIDDLE LOBECTOMY Comparison: AP chest, prior day. Findings: Cardiomediastinal silhouette is stable. Right mid and lower lung airspace opacities are mildly improved. Small left pleural effusion is unchanged. There is no pneumothorax. Air-filled hollow viscus in the left upper abdomen may be the stomach. Cannot exclude gastric wall thickening. IMPRESSION: 1. Right mid and lower lung airspace opacities are mildly improved. 2. Unchanged small left pleural effusion. 3. Cannot exclude gastric wall thickening. Correlate for any clinical symptoms of gastritis. Electronically signed by: Lauri Wei MD (10/27/2018 9:28 AM) [facility]
--- NOTE | 2018-10-27 10:45 | PDOC ---
PULMONARY PROGRESS NOTES Subjective no soa Vitals Vital Signs Date Time Temp Pulse Resp B/P (MAP) Pulse Ox O2 Delivery O2 Flow Rate FiO2 10/27/18 09:02 96 Room Air 2.0 10/27/18 08:03 116/60 10/27/18 08:02 82 10/27/18 08:02 18 10/27/18 07:30 98.8 98.8 General: Alert, No acute distress Lungs: Clear Cardiovascular: S1 Abdomen: Soft Neuro Exam: Alert Extremities: No Edema Skin: Warm Labs Laboratory Tests Test 10/27/18 04:30 White Blood Count 10.8 x10^3/uL (4.0-11.0) Red Blood Count 3.52 x10^6/uL (4.30-5.70) Hemoglobin 11.6 g/dL (13.0-17.5) Hematocrit 33.4 % (39.0-53.0) Mean Corpuscular Volume 95 fL (79-100) Mean Corpuscular Hemoglobin 33 pg (25-35) Mean Corpuscular Hemoglobin Concent 35 g/dL (31-37) Red Cell Distribution Width 12.8 % (11.5-14.5) Platelet Count 307 x10^3/uL (140-400) Laboratory Tests Test 10/27/18 04:30 White Blood Count 10.8 x10^3/uL (4.0-11.0) Red Blood Count 3.52 x10^6/uL (4.30-5.70) Hemoglobin 11.6 g/dL (13.0-17.5) Hematocrit 33.4 % (39.0-53.0) Mean Corpuscular Volume 95 fL (79-100) Mean Corpuscular Hemoglobin 33 pg (25-35) Mean Corpuscular Hemoglobin Concent 35 g/dL (31-37) Red Cell Distribution Width 12.8 % (11.5-14.5) Platelet Count 307 x10^3/uL (140-400) Medications Active Scripts Medications Dose Route/Sig Max Daily Dose Days Date Category Amlodipine Besylate 10 Mg Tablet 10 Mg PO DAILY 09/10/18 Reported Lisinopril-Hctz 20-25 Mg Tab (Lisinopril/Hydrochlorothiazide) 1 Each Tablet 1 Tab PO DAILY 09/10/18 Reported Comments REVIEWED 1/13 1. Right mid and lower lung airspace opacities are mildly improved. 2. Unchanged small left pleural effusion. 3. Cannot exclude gastric wall thickening. Correlate for any clinical symptoms of gastritis. Impression . 1. 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 2. Postoperative hypotension/ shock, RESOLVED. 3. Abnormal chest x-ray with RML infiltrates.? infectious etiology. low grade fever resolved, mildly elevated wbc, added abx 10/25, cxr improving 4. Atrial fibrillation with rapid ventricular response, intraoperatively, resolved 5. Underlying chronic obstructive pulmonary disease, clinically compensated. Plan . 1. ABX 2. IS 4. Monitor chest x-rays. 5. Chest tube out 6. So far, pathology is pending, but lymph nodes on preliminary frozen section were negative for any metastasis. We will follow the final pathology. 7. Discussed with RN. 8. Monitor white cell count, normal now 9. Rehab Sunday GARRY VALERIO MD Oct 27, 2018 10:45
[2018-10-27 10:52] VITALS: BP 104/67
[2018-10-27] MEDS: cefTRIAXone IV Push 1 GM VIAL. IVP SCH (13:33)
--- NOTE | 2018-10-27 13:54 | PDOC ---
Progress Note Subjective Subjective Doing well. Pain well controlled. CXR OK. Normotensive in and out of AFib. 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, stage IB adenoCa ROS ROS No nausea No vomiting No pain No rash Vital Sign Vital Signs Vital Signs Date Time Temp Pulse Resp B/P (MAP) Pulse Ox O2 Delivery O2 Flow Rate FiO2 10/27/18 12:13 95 Nasal Cannula 2.0 10/27/18 10:52 98.4 79 19 104/67 (79) 98.4 Physical Exam PHYSICAL EXAM GENERAL: NAD, Alert HEENT: PERRL, OC/OP NECK: Supple, no JVD, no LN LUNGS: Clear HEART: S1S2, no gallop, no murmur ABD: Soft, NT, no organomegaly, no rebound EXT: No edema, no cyanosis BILL DISTRIBUTOR: Alert, oriented x 3, no focal neurologic deficit SKIN: No rash IV: ok Labs Lab Laboratory Tests Test 10/27/18 04:30 White Blood Count 10.8 x10^3/uL (4.0-11.0) Red Blood Count 3.52 x10^6/uL (4.30-5.70) Hemoglobin 11.6 g/dL (13.0-17.5) Hematocrit 33.4 % (39.0-53.0) Mean Corpuscular Volume 95 fL (79-100) Mean Corpuscular Hemoglobin 33 pg (25-35) Mean Corpuscular Hemoglobin Concent 35 g/dL (31-37) Red Cell Distribution Width 12.8 % (11.5-14.5) Platelet Count 307 x10^3/uL (140-400) Objective Assessment POD#5, s/p right middle lobectomy and mediastinal lymphadenectomy. Doing well. Pain well controlled. CXR OK. Normotensive in and out of AFib. 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
[2018-10-27 15:04] VITALS: BP 103/59
[2018-10-27 19:45] VITALS: BP 118/82
[2018-10-27 23:05] VITALS: BP 97/59
[2018-10-28] MEDS: KETOROLAC 15 MG/ML VIAL. IV PRN (02:57)
[2018-10-28 03:27] VITALS: BP 115/72
[2018-10-28] MEDS: GABAPENTIN 300 MG CAPSULE. PO SCH ×2 (06:10→11:57)
[2018-10-28 07:51] VITALS: BP 116/73
--- NOTE | 2018-10-28 08:31 | RAD ---
Portable chest, 10/28/2018: HISTORY: Status post right middle lobectomy Comparison is made to yesterday's study. The heart size is normal. There are unchanged infiltrates in the right perihilar region and left base. There are interstitial opacities in the right base. There is unchanged blunting of the left lateral costophrenic angle which may be due to a small amount pleural fluid. There is no evidence of pneumothorax. No new abnormality is detected. IMPRESSION: No significant change since yesterday's exam. Electronically signed by: Genaro Milton MD (10/28/2018 8:26 AM) [facility]
[2018-10-28] MEDS: SENNOSIDES/DOCUSATE 8.6/50MG TABLET. PO SCH (08:35)
[2018-10-28] MEDS: FAMOTIDINE 20 MG TABLET. PO SCH (08:35)
[2018-10-28] MEDS: AMIODARONE HCL 200 MG TABLET. PO SCH (08:35)
[2018-10-28] MEDS: oxyCODONE IR 5 MG TABLET PO PRN (08:36)
[2018-10-28] MEDS: ASPIRIN 325 MG TABLET PO SCH (08:36)
[2018-10-28] MEDS: DOCUSATE SODIUM 100 MG CAPSULE. PO SCH (08:36)
[2018-10-28] MEDS: METOPROLOL TART IMMED RELEASE 25 MG TABLET. PO SCH (08:36)
[2018-10-28] MEDS: HEPARIN for SUB-Q USE 5,000 UNIT/ML VIAL. SQ SCH (08:41)
[2018-10-28] MEDS: IPRATRPIUM/ALBUTEROL 0.5/2.5MG 3 ML NEBU. NEB SCH ×2 (08:56→11:33)
[2018-10-28] MEDS: ELECTROLYTE (ICU) PROTOCOL. MC SCH (09:00)
--- NOTE | 2018-10-28 11:17 | PDOC ---
PULMONARY PROGRESS NOTES Subjective no soa Vitals Vital Signs Date Time Temp Pulse Resp B/P (MAP) Pulse Ox O2 Delivery O2 Flow Rate FiO2 10/28/18 08:57 94 Room Air 10/28/18 08:36 75 116/73 10/28/18 08:36 20 10/28/18 07:55 2.0 10/28/18 07:51 98.5 98.5 General: Alert, No acute distress Lungs: Clear Cardiovascular: S1 Abdomen: Soft Neuro Exam: Alert Extremities: No Edema Skin: Warm Labs Laboratory Tests Test 10/27/18 04:30 White Blood Count 10.8 x10^3/uL (4.0-11.0) Red Blood Count 3.52 x10^6/uL (4.30-5.70) Hemoglobin 11.6 g/dL (13.0-17.5) Hematocrit 33.4 % (39.0-53.0) Mean Corpuscular Volume 95 fL (79-100) Mean Corpuscular Hemoglobin 33 pg (25-35) Mean Corpuscular Hemoglobin Concent 35 g/dL (31-37) Red Cell Distribution Width 12.8 % (11.5-14.5) Platelet Count 307 x10^3/uL (140-400) Medications Active Scripts Medications Dose Route/Sig Max Daily Dose Days Date Category Amlodipine Besylate 10 Mg Tablet 10 Mg PO DAILY 09/10/18 Reported Lisinopril-Hctz 20-25 Mg Tab (Lisinopril/Hydrochlorothiazide) 1 Each Tablet 1 Tab PO DAILY 09/10/18 Reported Comments REVIEWED 10/28 1. Right mid and lower lung airspace opacities are mildly improved. 2. Unchanged small left pleural effusion. Impression . 1. 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 2. Postoperative hypotension/ shock, RESOLVED. 3. Abnormal chest x-ray with RML infiltrates.? infectious etiology. low grade fever resolved, mildly elevated wbc, added abx 10/25, cxr improving 4. Atrial fibrillation with rapid ventricular response, intraoperatively, resolved 5. Underlying chronic obstructive pulmonary disease, clinically compensated. Plan . 1. ABX/ change to PO 2. IS 4. Monitor chest x-rays. 5. Chest tube out 6. 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 Discussed with RN. 8. Monitor white cell count, normal now 9. Rehab today GARRY VALERIO MD Oct 28, 2018 11:17
[2018-10-28 11:39] VITALS: BP 109/53
[2018-10-28] MEDS ORDERED: DOXYCYCLINE HYCLATE 100 MG TABLET PO SCH (12:00)
--- NOTE | 2018-10-28 14:10 | DISCH ---
DISCHARGE DISCHARGE INFORMATION: DISCHARGE DATE: Oct 28, 2018 FINAL DIAGNOSIS Lung cancer CONDITION ON DISCHARGE: Stable CODE STATUS: Code Status: Full FDC: SNF STAY <30 DAYS: Yes HOSPICE: HOSPICE: No HOSPICE EVAL & TREAT: No LTAC: ADMIT TO LTAC: No POST DISCHARGE ORDERS: ACTIVITY ORDERS: Other, see below (No heavy lifting in excess of 10 lbs for 6 weeks. Otherwise mobilize ad win) WEIGHT BEARING STATUS: Other, see below (No heavy lifting in excess of 10 lbs for 6 weeks, otherwise ambulate ad win) DIET AFTER DISCHARGE: Cardiac WOUND/INCISION CARE: Change dressing (Apply dressing or change dressing if area becomes saturated) FOLLOW-UP: PHYSICIAN FOLLOW-UP: F/u with Dr Garcia on 11/22/18 at 1:30pm at [facility] TREATMENT/EQUIPMENT ORDERS: Physical Therapy For: Evalulation/Treatment Occupational Therapy For: Evaluation/Treatment DISCHARGE MEDICATIONS: Home Meds Active Scripts Sennosides/Docusate Sodium (SENNA-TIME S TABLET) 1 Each Tablet, 1 TAB PO BID PRN for CONSTIPATION, #30 TAB Prov:GEM GARCIA MD 10/28/18 Acetaminophen (TYLENOL) 325 Mg Tablet, 650 MG PO PRN Q4HRS PRN for MILD PAIN, # 60 TAB Prov:GEM GARCIA MD 10/28/18 Oxycodone Hcl (OXYCODONE HCL IMMED.RELEASE ) 5 Mg Tablet, 5 MG PO PRN Q4HRS PRN for MODERATE-SEVERE PAIN, #60 TAB 0 Refills Prov:GEM GARCIA MD 10/28/18 Aspirin (ASPIRIN) 325 Mg Tablet, 325 MG PO DAILYWBKFT for CAD for 60 Days, #60 TAB Prov:GEM GARCIA MD 10/28/18 Metoprolol Tartrate (METOPROLOL TARTRATE) 25 Mg Tablet, 25 MG PO BID for atrial fibrillation and HTN for 60 Days, #120 TAB Prov:GEM GARCIA MD 10/28/18 Amiodarone Hcl (AMIODARONE HCL) 200 Mg Tablet, 400 MG PO BID for atrial fibrillation for 60 Days, #240 TAB Prov:GEM GARCIA MD 10/28/18 Reported Medications Amlodipine Besylate (AMLODIPINE BESYLATE) 10 Mg Tablet, 10 MG PO DAILY for hypertension, TAB 09/10/18 Lisinopril/Hydrochlorothiazide (LISINOPRIL-HCTZ 20-25 MG TAB) 1 Each Tablet, 1 TAB PO DAILY for hypertension, #30 TAB 5 Refills 09/10/18 GEM GARCIA MD Oct 28, 2018 14:10
[2018-10-28] MEDS ORDERED: SENN-22 PO (14:15)
[2018-10-28] MEDS ORDERED: OXYC5TAB4 PO (14:15)
[2018-10-28] MEDS ORDERED: METO25TA4 PO (14:15)
[2018-10-28] MEDS ORDERED: AMIO200T4 PO (14:15)
[2018-10-28] MEDS ORDERED: ACET325T9 PO (14:15)
[2018-10-28] MEDS ORDERED: ASPI325T8 PO (14:15)
--- NOTE | 2018-10-28 14:26 | PDOC ---
Progress Note Subjective Subjective Doing well. Pain well controlled. CXR OK. Normotensive rate controlled AFib. 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, stage IB adenoCa ROS ROS No nausea No vomiting No pain No rash Vital Sign Vital Signs Vital Signs Date Time Temp Pulse Resp B/P (MAP) Pulse Ox O2 Delivery O2 Flow Rate FiO2 10/28/18 11:39 98.7 73 18 109/53 (71) 92 Room Air 98.7 10/28/18 07:55 2.0 Physical Exam PHYSICAL EXAM GENERAL: NAD, Alert HEENT: PERRL, OC/OP NECK: Supple, no JVD, no LN LUNGS: Clear HEART: S1S2, no gallop, no murmur ABD: Soft, NT, no organomegaly, no rebound EXT: No edema, no cyanosis ELECTROTHERAPIST: Alert, oriented x 3, no focal neurologic deficit SKIN: No rash IV: ok Objective Assessment POD#6, s/p right middle lobectomy and mediastinal lymphadenectomy. Doing well. Pain well controlled. CXR OK. Normotensive rate controlled AFib. 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
--- NOTE | 2018-10-28 14:33 | PDOC3 ---
Discharge Summary Visit Information Date of Admission: Oct 22, 2018 Date of Discharge: Oct 28, 2018 Admitting Diagnosis: Lung cancer Final Diagnosis Pathology confirms a T2a (for visceral pleural involvement) N0M0, stage IB adenoCa Atrial Fibrillation Brief Hospital Course Allergies Allergies Coded Allergies Type Severity Reaction Last Updated Verified No Known Drug Allergies 10/22/18 No Vital Signs Vital Signs Date Time Temp Pulse Resp B/P (MAP) Pulse Ox O2 Delivery O2 Flow Rate FiO2 10/28/18 11:39 98.7 73 18 109/53 (71) 92 Room Air 98.7 10/28/18 07:55 2.0 Lab Results Laboratory Tests Test 10/27/18 04:30 White Blood Count 10.8 x10^3/uL (4.0-11.0) Red Blood Count 3.52 x10^6/uL (4.30-5.70) Hemoglobin 11.6 g/dL (13.0-17.5) Hematocrit 33.4 % (39.0-53.0) Mean Corpuscular Volume 95 fL (79-100) Mean Corpuscular Hemoglobin 33 pg (25-35) Mean Corpuscular Hemoglobin Concent 35 g/dL (31-37) Red Cell Distribution Width 12.8 % (11.5-14.5) Platelet Count 307 x10^3/uL (140-400) Brief Hospital Course Mr. Ross is a 78 old male who was admitted on 10/22/18 for an elective lung resection for a biopsy confirmed adenoCa of the right middle lobe. He underwent a thoracotomy, right middle lobectomy and mediastinal lymphadenectomy on . Postop he was transferred to the ICU with an epidural. He had intraoperative Afib which continued throughout his hospitalization, but was rate controlled with amiodarone and metoprolol. The first chest tube was removed on POD#2 and the second on POD#3. The epidural was removed on POD#3. He was transferred to the stepdown unit on 10/25/18. His pain was well controlled. He ambulated independently. He had a BM. [facility], given that he lives alone. 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 Discharge Information Condition at Discharge: Stable Follow Up: Weeks (11/22/18) Disposition/Orders: Other ([facility] facility) Scheduled Amiodarone Hcl (Amiodarone Hcl) 200 Mg Tablet, 400 MG PO BID for atrial fibrillation for 60 Days, #240 Prescribed by: GEM GARCIA MD on 10/28/18 1415 Aspirin (Aspirin) 325 Mg Tablet, 325 MG PO DAILYWBKFT for CAD for 60 Days, #60 Prescribed by: GEM GARCIA MD on 10/28/18 1415 Metoprolol Tartrate (Metoprolol Tartrate) 25 Mg Tablet, 25 MG PO BID for atrial fibrillation and HTN for 60 Days, #120 Prescribed by: GEM GARCIA MD on 10/28/18 1415 Scheduled PRN Acetaminophen (Tylenol) 325 Mg Tablet, 650 MG PO PRN Q4HRS PRN for MILD PAIN, # 60 Prescribed by: GEM GARCIA MD on 10/28/18 1415 Oxycodone Hcl (Oxycodone Hcl Immed.release ) 5 Mg Tablet, 5 MG PO PRN Q4HRS PRN for MODERATE-SEVERE PAIN, #60 Ref 0 Prescribed by: GEM GARCIA MD on 10/28/18 1415 Sennosides/Docusate Sodium (Senna-Time S Tablet) 1 Each Tablet, 1 TAB PO BID PRN for CONSTIPATION, #30 Prescribed by: GEM GARCIA MD on 10/28/18 1415 Discontinued Medications Amlodipine Besylate (Amlodipine Besylate) 10 Mg Tablet, 10 MG PO DAILY for hypertension, (Reported) Entered as Reported by: ITZEL WIGGINS on 09/10/18732 Last Taken: Unknown Dose on 10/21/18 Last Action: Last Taken Edited on 10/22 by KESHAWN POSEY Lisinopril/Hydrochlorothiazide (Lisinopril-Hctz 20-25 Mg Tab) 1 Each Tablet, 1 TAB PO DAILY for hypertension, #30 Ref 5 (Reported) Entered as Reported by: ITZEL WIGGINS on 09/10/18732 Last Taken: Unknown Dose on 10/22/1830 Last Action: Last Taken Edited on 10/22/18739 by GEM GARCÍA MD Oct 28, 2018 14:33
[2018-10-28 14:42] VITALS: BP 115/66
--- NOTE | 2018-10-28 14:48 | NUR ---
SS following for discharge planning. Discharge orders received. SS phoned and faxed discharge orders to [facility], ; fax [phone]. SS met with pt. Pt choice and rights forms signed by pt and placed in chart. Pt will discharge today and go to [facility] at 1600. [facility] to transport pt. Pt and pt's RN notified.
--- NOTE | 2018-10-28 16:15 | NUR ---
REPORT GIVEN TO NURSE AT [facility]. PIV AND HEART MONITOR REMOVED.PATIENT DISCHARGE TO [facility] PER WHEELCHAIR ACCOMPANIED BY TRANSPORTATION.
[2019-01-31] MEDS ORDERED: OMEP20TA8 PO (09:50)
[2019-01-31] MEDS ORDERED: NALO25TA2 PO (09:50)
== END 2018-10-28 16:15 | DRG 164 ==
LOC: OPSVCIP 07:15 → EEVIPCON 07:15 → 1 WEST ICU 16:35 → 2 SOUTH 10-25 18:33
PROVIDERS: ADMIT Thoracic Surgery (Cardiothoracic Vascular Surgery); ATTEND Thoracic Surgery (Cardiothoracic Vascular Surgery)
PROC: 0BJ08ZZ Inspection of Tracheobronchial Tree, Via Natural or Artificial Opening Endoscopic (ICD-10-PCS; 2018-10-22)
PROC: 0BTD0ZZ Resection of Right Middle Lung Lobe, Open Approach (ICD-10-PCS; principal; 2018-10-22 09:00)
PROC: 07B70ZX Excision of Thorax Lymphatic, Open Approach, Diagnostic (ICD-10-PCS; 2018-10-22 09:00)
DX: C34.2 Malignant neoplasm of middle lobe, bronchus or lung (principal); J98.11 Atelectasis; I47.2 Ventricular tachycardia; I10 Essential (primary) hypertension; J44.9 Chronic obstructive pulmonary disease, unspecified; Z85.118 Personal history of other malignant neoplasm of bronchus and lung; Z87.891 Personal history of nicotine dependence; Z96.659 Presence of unspecified artificial knee joint; M19.90 Unspecified osteoarthritis, unspecified site; Z60.2 Problems related to living alone; I95.9 Hypotension, unspecified; I48.91 Unspecified atrial fibrillation
CPT/HCPCS: 36415; 71045; 80048; 83735; 85027; 86850; 86900; 86901; 86920; 87641; 88305; 88309; 93005; 94640; 94760; C2615; J0690; J0696; J1100; J1160; J1644; J1885; J2001; J2250; J2270; J2370; J2405; J2704; J2710; J3010; J3475; J3480; J3490; J7030; J7040; J7050; J7120; J7613; J7620; P9041; 97110; 97116; 97530; 97535; G0378

== ENCOUNTER 2018-12-23 07:44 | Emergency (ER) | payer MEDICARE ==
[~2018-12-23] VITALS: Ht 185.4 cm; Wt 88.5 kg
[~2018-12-23 07:44] MED LIST changes: +ACET325T9 PO; +AMIO200T4 PO; +ASPI325T8 PO; -HYDROmorphone 2 MG/ML VIAL IV PRN; -IV RINGERS,LACTATED 1000ML 1,000 ML IV SCH; -LIDOCAINE 1% PF 2 ML VIAL. ID PRN; +METO25TA4 PO; -MORPHINE SULFATE 2 MG/ML VIAL. IV PRN; -ONDANSETRON PF 4 MG/2 ML VIAL. IV PRN; +OXYC5TAB4 PO; -PROCHLORPERAZINE 10 MG/2 ML VIAL. IV PRN; +SENN-22 PO; -fentaNYL PF VIAL 100 MCG/2 ML VIAL IV PRN
--- NOTE | 2018-12-23 08:00 | PHYS DOC ---
Adult General HPI HPI 78-year-old male presents with approximately an 18 hour history of left lower quadrant abdominal discomfort. He denies any dysuria or gross hematuria. He denies any flank or back pain. He denies any fever chills or sweats. He states the pain has been constant and aching. He states he's never had anything like this before. He states the pain is currently about an 8 out of 10.[] Review of Systems Review of Systems Constitutional: Denies fever or chills [] Eyes: Denies change in visual acuity, redness, or eye pain [] HENT: Denies nasal congestion or sore throat [] Respiratory: Denies cough or shortness of breath [] Cardiovascular: No additional information not addressed in HPI [] GI: Per history of present illness[] : Denies dysuria or hematuria [] Musculoskeletal: Denies back pain or joint pain [] Integument: Denies rash or skin lesions [] Neurologic: Denies headache, focal weakness or sensory changes [] Endocrine: Denies polyuria or polydipsia [] All other systems were reviewed and found to be within normal limits, except as documented in this note. Current Medications Current Medications Current Medications Medications (Trade) Dose Ordered Sig/Rosa Elena Start Time Stop Time Status Last Admin Dose Admin Ketorolac Tromethamine (Toradol 30mg Vial) 30 mg 1X ONCE 12/23/18 08:15 12/23/18 08:16 DC 12/23/18 08:55 30 MG Ondansetron HCl (Zofran) 4 mg 1X ONCE 12/23/18 08:15 12/23/18 08:16 DC 12/23/18 08:55 4 MG Sodium Chloride 1,000 ml @ 1,000 mls/hr 1X ONCE 12/23/18 08:15 12/23/18 09:14 DC 12/23/18 08:55 1,000 MLS/HR Allergies Allergies Allergies Coded Allergies Type Severity Reaction Last Updated Verified No Known Drug Allergies 10/22/18 No Physical Exam Physical Exam Constitutional: Well developed, well nourished, no acute distress, non-toxic appearance. [] HENT: Normocephalic, atraumatic, bilateral external ears normal, oropharynx moist, no oral exudates, nose normal. [] Eyes: PERRLA, EOMI, conjunctiva normal, no discharge. [] Neck: Normal range of motion, no tenderness, supple, no stridor. [] Cardiovascular:Heart rate regular rhythm, no murmur [] Lungs & Thorax: Bilateral breath sounds clear to auscultation [] Abdomen: Bowel sounds normal, soft, no tenderness, no masses, no pulsatile masses. [] Skin: Warm, dry, no erythema, no rash. [] Back: No tenderness, no CVA tenderness. [] Extremities: No tenderness, no cyanosis, no clubbing, ROM intact, no edema. [] Neurologic: Alert and oriented X 3, normal motor function, normal sensory function, no focal deficits noted. [] Psychologic: Affect normal, judgement normal, mood normal. [] Current Patient Data Vital Signs Vital Signs Date Time Temp Pulse Resp B/P (MAP) Pulse Ox O2 Delivery O2 Flow Rate FiO2 12/23/18 07:50 98.3 96 20 174/86 (115) 99 Room Air 98.3 Lab Values Laboratory Tests Test 12/23/18 08:14 12/23/18 09:25 White Blood Count 8.2 x10^3/uL (4.0-11.0) Red Blood Count 4.03 x10^6/uL (4.30-5.70) L Hemoglobin 12.2 g/dL (13.0-17.5) L Hematocrit 37.2 % (39.0-53.0) L Mean Corpuscular Volume 92 fL (79-100) Mean Corpuscular Hemoglobin 30 pg (25-35) Mean Corpuscular Hemoglobin Concent 33 g/dL (31-37) Red Cell Distribution Width 14.4 % (11.5-14.5) Platelet Count 311 x10^3/uL (140-400) Neutrophils (%) (Auto) 73 % (31-73) Lymphocytes (%) (Auto) 13 % (24-48) L Monocytes (%) (Auto) 13 % (0-9) H Eosinophils (%) (Auto) 1 % (0-3) Basophils (%) (Auto) 1 % (0-3) Neutrophils # (Auto) 6.0 x10^3uL (1.8-7.7) Lymphocytes # (Auto) 1.1 x10^3/uL (1.0-4.8) Monocytes # (Auto) 1.0 x10^3/uL (0.0-1.1) Eosinophils # (Auto) 0.1 x10^3/uL (0.0-0.7) Basophils # (Auto) 0.1 x10^3/uL (0.0-0.2) Sodium Level 138 mmol/L (136-145) Potassium Level 3.8 mmol/L (3.5-5.1) Chloride Level 101 mmol/L (98-107) Carbon Dioxide Level 27 mmol/L (21-32) Anion Gap 10 (6-14) Blood Urea Nitrogen 12 mg/dL (8-26) Creatinine 0.9 mg/dL (0.7-1.3) Estimated GFR (Cockcroft-Gault) 82.0 BUN/Creatinine Ratio 13 (6-20) Glucose Level 98 mg/dL (70-99) Calcium Level 9.1 mg/dL (8.5-10.1) Total Bilirubin 0.4 mg/dL (0.2-1.0) Aspartate Amino Transferase (AST) 20 U/L (15-37) Alanine Aminotransferase (ALT) 23 U/L (16-63) Alkaline Phosphatase 108 U/L (46-116) Total Protein 7.2 g/dL (6.4-8.2) Albumin 3.4 g/dL (3.4-5.0) Albumin/Globulin Ratio 0.9 (1.0-1.7) L Lipase 42 U/L (73-393) L Urine Color Yellow Urine Clarity Clear Urine pH 7.5 Urine Specific [place] 1.015 Urine Protein Negative mg/dL (NEG-TRACE) Urine Glucose (UA) Negative mg/dL (NEG) Urine Ketones (Stick) Negative mg/dL (NEG) Urine Blood Trace (NEG) Urine Nitrite Negative (NEG) Urine Bilirubin Negative (NEG) Urine Urobilinogen Dipstick 1.0 mg/dL (0.2 mg/dL) Urine Leukocyte Esterase Negative (NEG) Urine RBC 0 /HPF (0-2) Urine WBC 0 /HPF (0-4) Urine Squamous Epithelial Cells Few /LPF Urine Bacteria 0 /HPF (0-FEW) Laboratory Tests 12/23/18 08:14 Laboratory Tests 12/23/18 08:14 EKG EKG [] Radiology/Procedures Radiology/Procedures [] Impressions: PROCEDURE: CT ABDOMEN PELVIS WO CONTRAST CT of the abdomen and pelvis without contrast, 12/23/2018: HISTORY: Left lower quadrant pain Noncontrast scans were obtained with multiplanar reconstructions produced. No intrarenal calculi are identified. The renal collecting systems and ureters are not dilated. No ureteral calculus is seen. The urinary bladder is unremarkable. Minimal prostatic calcifications are present. Multiple vascular calcifications are present in the pelvis. There are bibasilar linear parenchymal opacities compatible with scarring. There is minimal pleural thickening posteriorly on the right compatible with scarring versus a tiny amount pleural fluid. The unopacified liver is unremarkable. No gallbladder abnormality is seen. The pancreas is unremarkable. The spleen is of normal size. There is moderate aortoiliac calcific plaquing. No abdominal or pelvic adenopathy is seen. The bowel loops are not dilated. Several sigmoid diverticula are present. No paracolonic inflammatory process is seen. The appendix is visualized and it shows no abnormality. There is a suggestion of a small hiatal hernia. No free fluid or free air is evident in the abdomen or pelvis. Moderate multilevel degenerative changes are present in the lumbar spine. IMPRESSION: 1. No urinary tract calculi are identified. 2. Mild sigmoid diverticulosis. 3. No acute abdominal or pelvic abnormality is detected. Course & Med Decision Making Course & Med Decision Making Pertinent Labs and Imaging studies reviewed. (See chart for details) [ED course: Evaluation reveals a 78-year-old male in mild distress secondary to some left lower quadrant abdominal discomfort. His abdominal exam was relatively benign. CT scan did not show anything acute. His laboratory studies were essentially unremarkable. I reassured the patient that he should continue to feel better. I also instructed him to return to the emergency department with any new or concerning symptoms.] Dragon Disclaimer Dragon Disclaimer This electronic medical record was generated, in whole or in part, using a voice recognition dictation system. Departure Departure Impression: Primary Impression: Abdominal pain Disposition: HOME, SELF-CARE Condition: STABLE Referrals: ALLAN CLAYTON (PCP) Patient Instructions: Abdominal Pain, Diverticulosis Additional Instructions: Follow with her primary care physician this week for recheck. Return to the emergency department with any new or concerning symptoms Problem Qualifiers Primary Impression: Abdominal pain Abdominal location: left lower quadrant Qualified Codes: R10.32 - Left lower quadrant pain BOB ARVIZU DO Dec 23, 2018 08:00
[2018-12-23] MEDS ORDERED: IV NORMAL SALINE 1000ML BAG 1,000 ML IV ONE (08:15)
[2018-12-23] MEDS ORDERED: KETOROLAC 30 MG/ML VIAL. IV ONE (08:15)
[2018-12-23] MEDS ORDERED: ONDANSETRON PF 4 MG/2 ML VIAL. IV ONE (08:15)
[2018-12-23 08:19] LABS: BASO # 0.1 x10^3/uL (0.0-0.2); BASO % 1 % (0-3); EOS # 0.1 x10^3/uL (0.0-0.7); EOS % 1 % (0-3); HEMATOCRIT 37.2 % (39.0-53.0); HEMOGLOBIN 12.2 g/dL (13.0-17.5); LYMPH # 1.1 x10^3/uL (1.0-4.8); LYMPH % 13 % (24-48); MEAN CORPUSCULAR HEMOGLOBIN 30 pg (25-35); MEAN CORPUSCULAR HGB CONC 33 g/dL (31-37); MEAN CORPUSCULAR VOLUME 92 fL (79-100); MONO % 13 % (0-9); NEUT % 73 % (31-73); PLATELET COUNT 311 x10^3/uL (140-400); RED BLOOD COUNT 4.03 x10^6/uL (4.30-5.70); RED CELL DISTRIBUTION WIDTH 14.4 % (11.5-14.5); WHITE BLOOD COUNT 8.2 x10^3/uL (4.0-11.0)
[2018-12-23 08:27] LABS: CALCIUM 9.1 mg/dL (8.5-10.1); CREATININE 0.9 mg/dL (0.7-1.3); POTASSIUM 3.8 mmol/L (3.5-5.1)
[2018-12-23 08:34] LABS: ALBUMIN 3.4 g/dL (3.4-5.0); ALBUMIN/GLOBULIN RATIO 0.9 (1.0-1.7); TOTAL BILIRUBIN 0.4 mg/dL (0.2-1.0); TOTAL PROTEIN 7.2 g/dL (6.4-8.2)
--- NOTE | 2018-12-23 09:10 | RAD ---
CT of the abdomen and pelvis without contrast, 12/23/2018: HISTORY: Left lower quadrant pain Noncontrast scans were obtained with multiplanar reconstructions produced. No intrarenal calculi are identified. The renal collecting systems and ureters are not dilated. No ureteral calculus is seen. The urinary bladder is unremarkable. Minimal prostatic calcifications are present. Multiple vascular calcifications are present in the pelvis. There are bibasilar linear parenchymal opacities compatible with scarring. There is minimal pleural thickening posteriorly on the right compatible with scarring versus a tiny amount pleural fluid. The unopacified liver is unremarkable. No gallbladder abnormality is seen. The pancreas is unremarkable. The spleen is of normal size. There is moderate aortoiliac calcific plaquing. No abdominal or pelvic adenopathy is seen. The bowel loops are not dilated. Several sigmoid diverticula are present. No paracolonic inflammatory process is seen. The appendix is visualized and it shows no abnormality. There is a suggestion of a small hiatal hernia. No free fluid or free air is evident in the abdomen or pelvis. Moderate multilevel degenerative changes are present in the lumbar spine. IMPRESSION: 1. No urinary tract calculi are identified. 2. Mild sigmoid diverticulosis. 3. No acute abdominal or pelvic abnormality is detected. PQRS Compliance Statement: One or more of the following individualized dose reduction techniques were utilized for this examination: 1. Automated exposure control 2. Adjustment of the mA and/or kV according to patient size 3. Use of iterative reconstruction technique Electronically signed by: Genaro Milton MD (12/23/2018 9:07 AM) [facility]
[2018-12-23 09:36] LABS: BILIRUBIN,URINE NEGATIVE (NEG); CLARITY,URINE CLEAR; COLOR,URINE YELLOW; NITRITE,URINE NEGATIVE (NEG); PH,URINE 7.5; PROTEIN,URINE NEGATIVE (NEG-TRACE)
[2018-12-23 09:57] LABS: BACTERIA,URINE 0 /HPF (0-FEW); RBC,URINE 0 /HPF (0-2); SQUAMOUS EPITHELIAL CELL,UR FEW /LPF; WBC,URINE 0 /HPF (0-4)
[2018-12-23 10:30] VITALS: BP 138/82
--- NOTE | 2018-12-23 11:48 | EKG ---
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
[2019-01-31] MEDS ORDERED: NALO25TA2 PO (09:50)
[2019-01-31] MEDS ORDERED: OMEP20TA8 PO (09:50)
== END 2018-12-23 10:54 | disposition home or self-care (01) ==
LOC: ER 07:44
DX: R10.32 Left lower quadrant pain (principal)
CPT/HCPCS: 36415; 74176; 80053; 81001; 83690; 85025; 93005; 96374; 96375; 99284; J1885; J2405; J7030

== ENCOUNTER → 2019-01-31 | Day surgery (SDC) | payer MEDICARE ==
[~2019-01-31] MED LIST changes: +HYDROmorphone 2 MG/ML VIAL IV PRN; +IV RINGERS,LACTATED 1000ML 1,000 ML IV SCH; +LIDOCAINE 2% PF 5 ML VIAL. ONE; +MORPHINE SULFATE 2 MG/ML VIAL. IV PRN; +NALO25TA2 PO; +OMEP20TA8 PO; +ONDANSETRON PF 4 MG/2 ML VIAL. IV PRN; +PROCHLORPERAZINE 10 MG/2 ML VIAL. IV PRN; +PROPOFOL 40 ML IV ONE; +fentaNYL PF VIAL 100 MCG/2 ML VIAL IV PRN
[2019-01-31 11:21] VITALS: BP 162/91
--- NOTE | 2019-02-03 15:06 | PATHOLOGY ---
[facility] Accession Number: [id number] . 01 Material submitted: . colon - SIGMOID POLYP. Modifiers: sigmoid . 01 Clinical history: . Change in bowel habits . 02 Diagnosis: Colon, sigmoid, biopsy: - Adenomatous polyp. . (SKM:mml; 02/03/2019) QL/02/03/2019 . 02 Electronically signed: . Neville Sow MD, Pathologist NPI- [id number] . 01 Gross description: . The specimen is received in formalin, labeled "Cody, Eduardo, sigmoid polyp" and consists of a polypoid segment of pink-blankenship tissue measuring 0.6 x 0.4 x 0.3 cm. The margin is inked black. It is bisected and entirely submitted A1. (SDY; 01/31/2019) SYU/SYU . 02 Pathologist provided ICD-10: D12.5 . 02 CPT . 878688 Specimen Comment: A courtesy copy of this report has been sent to Specimen Comment: [phone]. Specimen Comment: Report sent to / DR CLAYTON Performed at: 01 [facility] [address], [place] [id number] MD Clarke Pretty MD Phone: [phone] Performed at: 02 [facility] [address] [place], [place] [id number] MD Tony Nathan MD Phone: [phone]
== END | disposition home or self-care (01) ==
LOC: ENDOS 09:22
PROVIDERS: ATTEND Internal Medicine Gastroenterology
DX: D12.5 Benign neoplasm of sigmoid colon (principal); K57.30 Diverticulosis of large intestine without perforation or abscess without bleeding; K64.0 First degree hemorrhoids; Z79.899 Other long term (current) drug therapy; Z98.890 Other specified postprocedural states
CPT/HCPCS: 45385; 88305; J2001; J2704; 43239

== ENCOUNTER → 2019-02-13 | Outpatient (CLI) | payer MEDICARE ==
[2019-01-31 11:21] VITALS: BP 162/91
[~2019-02-13] MED LIST changes: -HYDROmorphone 2 MG/ML VIAL IV PRN; +IOHEXOL 240 MG/ML 50ML VIAL. PO ONE; +IOHEXOL 300 MG/ML 100ML VIAL. IV ONE; -IV RINGERS,LACTATED 1000ML 1,000 ML IV SCH; -LIDOCAINE 2% PF 5 ML VIAL. ONE; -MORPHINE SULFATE 2 MG/ML VIAL. IV PRN; -ONDANSETRON PF 4 MG/2 ML VIAL. IV PRN; -PROCHLORPERAZINE 10 MG/2 ML VIAL. IV PRN; -PROPOFOL 40 ML IV ONE; -fentaNYL PF VIAL 100 MCG/2 ML VIAL IV PRN
--- NOTE | 2019-02-19 11:01 | RAD ---
CT of the chest, abdomen and pelvis with contrast, 02/13/2019: History: Lung cancer, abdominal pain Multidetector CT imaging was performed following oral and IV administration of contrast. Comparison is made to a CT chest exam from 07/22/2018. There has been an interval right middle lobectomy for a known lung malignancy. There are emphysematous changes in the lungs. There are scattered linear parenchymal scars. There is mild thickening along the oblique fissure on the right which is presumably postsurgical. No pulmonary mass or consolidation is seen. There is no evidence of pleural fluid. There is mild calcific plaquing of the thoracic aorta without evidence of aneurysm. Moderate scattered coronary artery calcifications are present. Several small mediastinal lymph nodes are seen without evidence of pathologic enlargement. There are vertebral compression deformities at T8 and T7 which are new compared to 07/22/2018 exam. There are mild sclerotic changes within those vertebral bodies which may be related to the healing process. Blastic metastatic disease cannot be excluded. Mild vertebral compression deformities at T4 and T5 appear unchanged. There is an incompletely healed mid thoracic rib fracture on the right which is probably postsurgical. No hepatic abnormality is detected. The gallbladder is unremarkable. The pancreas shows no abnormality. The spleen is of normal size. There is a small cyst in the posterior aspect of the left kidney with an overlying parenchymal scar. The kidneys show no evidence of obstruction. There is unchanged low density thickening of both adrenal glands, compatible with benign adenomas. Moderate aortoiliac calcific plaquing is present. No abdominal or pelvic adenopathy is seen. Several sigmoid diverticula are noted. The bowel loops are not dilated. The appendix is visualized and is unremarkable. No free fluid or free air is evident in the abdomen or pelvis. There are moderate scattered degenerative changes in the spine, worst in the lumbar region. IMPRESSION: 1. Status post right middle lobectomy with no evidence of tumor recurrence. 2. Emphysema with parenchymal scarring. 3. Coronary artery disease. 4. Stable bilateral adrenal nodules compatible with benign adenomas. 5. Mild sigmoid diverticulosis. 6. Unchanged old T4 and T5 vertebral compression fractures. 7. New vertebral compression fractures at T7 and T8 which could be benign or pathologic. PQRS Compliance Statement: One or more of the following individualized dose reduction techniques were utilized for this examination: 1. Automated exposure control 2. Adjustment of the mA and/or kV according to patient size 3. Use of iterative reconstruction technique MTDD
== END | disposition home or self-care (01) ==
LOC: CT 10:19
PROVIDERS: ATTEND Internal Medicine Hematology & Oncology
DX: K57.30 Diverticulosis of large intestine without perforation or abscess without bleeding (principal); J43.9 Emphysema, unspecified; E27.8 Other specified disorders of adrenal gland; I25.10 Atherosclerotic heart disease of native coronary artery without angina pectoris; M84.48XD Pathological fracture, other site, subsequent encounter for fracture with routine healing; M43.8X4 Other specified deforming dorsopathies, thoracic region; N28.1 Cyst of kidney, acquired; I70.0 Atherosclerosis of aorta; Z85.118 Personal history of other malignant neoplasm of bronchus and lung
CPT/HCPCS: 71260; Q9966; Q9967

== ENCOUNTER → 2019-02-25 | Outpatient (CLI) | payer MEDICARE ==
[2019-01-31 11:21] VITALS: BP 162/91
[~2019-02-25] MED LIST changes: -IOHEXOL 240 MG/ML 50ML VIAL. PO ONE; -IOHEXOL 300 MG/ML 100ML VIAL. IV ONE
--- NOTE | 2019-02-25 14:26 | RAD ---
Examination: BONE SCAN WHOLE BODY History: Right lung cancer Comparison/Correlation: 02/13/2019 CT chest abdomen and pelvis with IV and oral contrast Findings: 2 mCi technetium 99m MDP was intravenously administered for purposes of whole body bone scintigraphy. Uptake involving the left maxillary sinus region and the maxilla are noted. Uptake involving the left periorbital region noted. Intense uptake involving right upper ribs posteriorly corresponding to old fractures are noted. T7 and T8 vertebral bodies have intense uptake corresponding to compression fracture is noted. Uptake involving the upper lumbar spine corresponding to degenerative change identified. Kidneys and urinary bladder are visualized. Uptake corresponding to degenerative change of the right knee medial compartment noted. Impression: Uptake involving the left fracture sinus region and the maxilla. Correlate for underlying sinusitis and dental disease. Uptake about the left periorbital region is also present and of indeterminate significance. Correlate with history of trauma. Correlate with previous head CT or skull x-ray exams. If no prior exams are available, consider orbit x-ray exam or CT exam for further evaluation. No abnormal radiotracer distribution typical for metastatic disease. Electronically signed by: Mark Luther MD (02/25/2019 2:22 PM) [facility]
== END | disposition home or self-care (01) ==
LOC: NM 09:17
PROVIDERS: ATTEND Internal Medicine Hematology & Oncology
DX: C34.2 Malignant neoplasm of middle lobe, bronchus or lung (principal); S02.40DA Maxillary fracture, left side, initial encounter for closed fracture; J32.9 Chronic sinusitis, unspecified; I10 Essential (primary) hypertension; K04.90 Unspecified diseases of pulp and periapical tissues; Z87.891 Personal history of nicotine dependence; X58.XXXA Exposure to other specified factors, initial encounter; Y93.89 Activity, other specified; Y92.89 Other specified places as the place of occurrence of the external cause; Y99.8 Other external cause status
CPT/HCPCS: 78306; A9503

== ENCOUNTER → 2019-03-03 | Outpatient (CLI) | payer MEDICARE ==
[2019-01-31 11:21] VITALS: BP 162/91
--- NOTE | 2019-03-03 10:42 | RAD ---
Chest, 2 views, 03/03/2019: HISTORY: Status post lobectomy Comparison is made to a study from 10/28/2018. The heart size is normal. There is mild tortuosity of the thoracic aorta. The lungs are hyperexpanded compatible with emphysema. There are scattered parenchymal scars. A previously seen right parahilar opacity has resolved. No acute infiltrate is seen. There are multiple thoracic vertebral compression fractures as described on the 02/13/2019 CT exam. Right lateral midthoracic rib defects are probably postsurgical. The bony structures are demineralized. IMPRESSION: 1. Emphysema with parenchymal scarring. 2. No acute infiltrates. 3. Old and new thoracic vertebral compression deformities as described on the recent CT study. Electronically signed by: Genaro Milton MD (03/03/2019 10:39 AM) [facility]
== END | disposition home or self-care (01) ==
LOC: RAD 09:53
PROVIDERS: ATTEND Internal Medicine Hematology & Oncology
DX: J43.9 Emphysema, unspecified (principal); M43.8X4 Other specified deforming dorsopathies, thoracic region; Z90.2 Acquired absence of lung [part of]
CPT/HCPCS: 71046

== ENCOUNTER → 2019-03-12 | Outpatient (CLI) | payer MEDICARE ==
[2019-01-31 11:21] VITALS: BP 162/91
--- NOTE | 2019-03-12 11:12 | RAD ---
6 views of the orbits without comparison for bone scan abnormality at the left periorbital region, history of lung cancer. FINDINGS: The orbits are intact. The right frontal and maxillary sinuses appear clear. The left maxillary and frontal sinuses are also clear but appear underpneumatized relative to the right side, and are notable for diffuse peripheral hyperostosis. The roof of the left orbit also appears more densely sclerotic than on the right side. Findings likely reflect sequelae of chronic sinusitis, however other etiologies including Paget's disease or atypical metastasis cannot be excluded. The extent and nature of these findings could be better characterized with a maxillofacial CT scan with and without contrast. IMPRESSION: 1. Abnormal sclerosis of the left frontal and maxillary sinuses as well as the roof of left orbit. Findings are most suggestive of sequelae from chronic sinusitis, though metastatic disease rather osteoblastic etiology such as Paget's disease cannot be excluded. Findings could be better characterized with maxillofacial CT with and without IV contrast. Electronically signed by: Cristian King MD (03/12/2019 11:09 AM) [facility]
== END | disposition home or self-care (01) ==
LOC: RAD 09:47
PROVIDERS: ATTEND Internal Medicine Hematology & Oncology
DX: C34.2 Malignant neoplasm of middle lobe, bronchus or lung (principal); M85.2 Hyperostosis of skull
CPT/HCPCS: 70200

== ENCOUNTER → 2019-03-28 | Outpatient (CLI) | payer MEDICARE ==
[2019-01-31 11:21] VITALS: BP 162/91
[~2019-03-28] MED LIST changes: +CONTRAST GIVEN. MC PRN; +CYCL10TA2 PO; +IOHEXOL 300 MG/ML 100ML VIAL. IV ONE; +TRAM-48 PO
--- NOTE | 2019-03-28 11:23 | RAD ---
CT of the facial bones with contrast, 04/27/2019: HISTORY: Abnormal bone scan Multidetector CT imaging was performed following an IV bolus injection of iodinated contrast material. There is moderate mucosal thickening in the left maxillary sinus with a moderate amount of fluid within that sinus. There is mucosal thickening involving the ostiomeatal complex on the left. Mild mucosal thickening is present in both ethmoid sinuses, both frontal sinuses, right greater than left, and the left sphenoid sinus. There appears to be a tiny amount of free fluid in the left frontal sinus. There is only minimal mucosal thickening in the right maxillary sinus. There is sclerotic bony thickening involving the gotti of the left maxillary sinus most prominent laterally and posteriorly. There is also bony thickening and sclerosis along the roof of the left orbit adjacent to the left frontal sinus. No destructive bony lesion is seen. The underlying orbital contents are unremarkable. The patient is edentulous. IMPRESSION: 1. Paranasal sinusitis with dominant involvement of the left maxillary sinus as described above. 2. Sclerotic bony thickening involving the gotti of the left maxillary and frontal sinuses, likely due to chronic sinusitis. Fibrous dysplasia or Paget's disease are less likely possibilities. PQRS Compliance Statement: One or more of the following individualized dose reduction techniques were utilized for this examination: 1. Automated exposure control 2. Adjustment of the mA and/or kV according to patient size 3. Use of iterative reconstruction technique Electronically signed by: Genaro Milton MD (03/28/2019 11:20 AM) [facility]
== END | disposition home or self-care (01) ==
LOC: CT 09:32
PROVIDERS: ATTEND Internal Medicine Hematology & Oncology
DX: J32.0 Chronic maxillary sinusitis (principal); J34.89 Other specified disorders of nose and nasal sinuses; M89.38 Hypertrophy of bone, other site; C34.2 Malignant neoplasm of middle lobe, bronchus or lung
CPT/HCPCS: 70487; Q9967

== ENCOUNTER 2019-03-29 10:00 | Emergency (ER) | payer MEDICARE ==
[~2019-03-29] VITALS: Ht 185.4 cm; Wt 85.7 kg
[~2019-03-29 10:00] MED LIST changes: -CONTRAST GIVEN. MC PRN; -CYCL10TA2 PO; -IOHEXOL 300 MG/ML 100ML VIAL. IV ONE; -TRAM-48 PO
--- NOTE | 2019-03-29 10:27 | PHYS DOC ---
Past Medical History Past Medical History: A-Fib, Cancer, Hypertension Past Surgical History: Other Additional Past Surgical Histo: RIGHT LOBECTOMY Alcohol Use: None Drug Use: None Adult General Chief Complaint Chief Complaint: RIB PAIN HPI HPI Patient is a 78 year old male who presents with complaining of right lower rib pain. Patient states he had right lobectomy in October of this year because of lung cancer and currently does not take radiation or chemotherapy. Patient complaining of sudden onset of right lower anterior chest wall pain since yesterday as a constant sharp pain with radiation to right flank that getting worse with taking deep breaths and movement. Patient rated his pain 10 over 10 and denies shortness of breath, fever and chills, nausea and vomiting, diarrhea and constipation, urinalysis, recent injury or previous same pain. Review of Systems Review of Systems Constitutional: Denies fever or chills [] Eyes: Denies change in visual acuity, redness, or eye pain [] HENT: Denies nasal congestion or sore throat [] Respiratory: Denies cough or shortness of breath [] Cardiovascular: No additional information not addressed in HPI [] GI: Denies abdominal pain, nausea, vomiting, bloody stools or diarrhea [] : Denies dysuria or hematuria [] Musculoskeletal: Denies back pain or joint pain [] Integument: Denies rash or skin lesions [] Neurologic: Denies headache, focal weakness or sensory changes [] Endocrine: Denies polyuria or polydipsia [] All other systems were reviewed and found to be within normal limits, except as documented in this note. Current Medications Current Medications Current Medications Medications (Trade) Dose Ordered Sig/Rosa Elena Start Time Stop Time Status Last Admin Dose Admin Clonidine HCl (Catapres) 0.2 mg 1X ONCE 03/29/19 11:45 03/29/19 11:46 DC 03/29/19 11:27 0.2 MG Fentanyl Citrate (Fentanyl 2ml Vial) 50 mcg 1X ONCE 03/29/19 10:45 03/29/19 10:46 DC 03/29/19 10:33 50 MCG Info (CONTRAST GIVEN -- Rx MONITORING) 1 each PRN DAILY PRN 03/29/19 12:30 03/29/19 14:25 DC Iohexol (Omnipaque 350 Mg/ml) 100 ml 1X ONCE 03/29/19 12:45 03/29/19 12:46 DC 03/29/19 12:39 100 ML Allergies Allergies Allergies Coded Allergies Type Severity Reaction Last Updated Verified No Known Drug Allergies 01/31/19 No Physical Exam Physical Exam Constitutional: Well developed, well nourished, mild distress, non-toxic appearance. [] HENT: Normocephalic, atraumatic, oropharynx moist. Eyes: PERRLA, EOMI, conjunctiva normal, no discharge. [] Neck: Normal range of motion, no tenderness, supple, no stridor. [] Cardiovascular:Heart rate regular rhythm, no murmur [] Lungs & Thorax: Bilateral breath sounds clear to auscultation , clean right thoracotomy scar, remained 2 silk sutures of chest tube placement in right hemithorax since October without sign of infection.[] Abdomen: Bowel sounds normal, soft, no tenderness, no masses, no pulsatile masses. [] Skin: Warm, dry, no erythema, no rash. [] Back: No tenderness, no CVA tenderness. [] Extremities: No tenderness, no cyanosis, no clubbing, ROM intact, no edema. [] Neurologic: Alert and oriented X 3, normal motor function, normal sensory function, no focal deficits noted. [] Psychologic: Affect normal, judgement normal, mood normal. [] Current Patient Data Vital Signs Vital Signs Date Time Temp Pulse Resp B/P (MAP) Pulse Ox O2 Delivery O2 Flow Rate FiO2 03/29/19 14:06 54 19 141/90 (107) 94 Nasal Cannula 2.0 03/29/19 10:12 97.9 97.9 Lab Values Laboratory Tests Test 03/29/19 10:55 White Blood Count 13.9 x10^3/uL (4.0-11.0) H Red Blood Count 4.53 x10^6/uL (4.30-5.70) Hemoglobin 14.2 g/dL (13.0-17.5) Hematocrit 42.5 % (39.0-53.0) Mean Corpuscular Volume 94 fL (79-100) Mean Corpuscular Hemoglobin 31 pg (25-35) Mean Corpuscular Hemoglobin Concent 33 g/dL (31-37) Red Cell Distribution Width 16.9 % (11.5-14.5) H Platelet Count 273 x10^3/uL (140-400) Neutrophils (%) (Auto) 80 % (31-73) H Lymphocytes (%) (Auto) 10 % (24-48) L Monocytes (%) (Auto) 9 % (0-9) Eosinophils (%) (Auto) 1 % (0-3) Basophils (%) (Auto) 1 % (0-3) Neutrophils # (Auto) 11.1 x10^3uL (1.8-7.7) H Lymphocytes # (Auto) 1.4 x10^3/uL (1.0-4.8) Monocytes # (Auto) 1.2 x10^3/uL (0.0-1.1) H Eosinophils # (Auto) 0.1 x10^3/uL (0.0-0.7) Basophils # (Auto) 0.1 x10^3/uL (0.0-0.2) D-Dimer (Norma) 0.95 ug/mlFEU (0.00-0.50) H Sodium Level 139 mmol/L (136-145) Potassium Level 4.6 mmol/L (3.5-5.1) Chloride Level 100 mmol/L (98-107) Carbon Dioxide Level 28 mmol/L (21-32) Anion Gap 11 (6-14) Blood Urea Nitrogen 15 mg/dL (8-26) Creatinine 0.9 mg/dL (0.7-1.3) Estimated GFR (Cockcroft-Gault) 82.0 BUN/Creatinine Ratio 17 (6-20) Glucose Level 106 mg/dL (70-99) H Calcium Level 9.5 mg/dL (8.5-10.1) Magnesium Level 2.0 mg/dL (1.8-2.4) Total Bilirubin 0.5 mg/dL (0.2-1.0) Aspartate Amino Transferase (AST) 19 U/L (15-37) Alanine Aminotransferase (ALT) 31 U/L (16-63) Alkaline Phosphatase 116 U/L (46-116) Creatine Kinase 40 U/L (39-308) Troponin I Quantitative < 0.017 ng/mL (0.000-0.055) IO-Bak-X-Type Natriuretic Peptide 223 pg/mL (0-449) Total Protein 7.4 g/dL (6.4-8.2) Albumin 4.0 g/dL (3.4-5.0) Albumin/Globulin Ratio 1.2 (1.0-1.7) Lipase 58 U/L (73-393) L Laboratory Tests 03/29/19 10:55 Laboratory Tests 03/29/19 10:55 EKG EKG EKG interpreted by me. EKG at 1048 showed sinus bradycardia at rate of 53, oth erwise unremarkable EKG. Radiology/Procedures Radiology/Procedures [facility] [address] [place] [address] IMAGING REPORT Signed PATIENT: ASA RAYMUNDO ACCOUNT: [id number] : 1940 LOCATION: ER AGE: 78 SEX: M EXAM STATUS: REG ER ORD. PHYSICIAN: ELDER OLIVO MD REASON: right lower chest wall pain PROCEDURE: CHEST PA & LATERAL EXAM: CHEST 2 VIEWS. HISTORY: Right chest pain. COMPARISON: 03/03/2019. FINDINGS: Frontal and lateral views of the chest are obtained. Fractures of the right lateral fifth through eighth ribs are not acute but demonstrate no clear healing response yet. Mild underlying parenchymal opacities suggests associated atelectasis or mild contusion. Additional opacities in the right base are unchanged and may represent scarring. Hyperinflation is consistent with chronic obstructive pulmonary disease. There is no pneumothorax. Mild blunting of the costophrenic angles may represent scarring or trace pleural effusions. The heart is not enlarged. There are atherosclerotic calcifications of the aorta. There are multiple mild to moderate mid and upper thoracic compression deformities. IMPRESSION: 1. Right fifth through eighth rib fractures appear subacute. 2. Multiple mild to moderate mid and upper thoracic compression fractures. 3. Chronic obstructive pulmonary disease. 4. Right midlung and basilar atelectasis or scarring. Electronically signed by: Katherine Carrera MD (03/29/2019 11:45 AM) [facility] DICTATED and SIGNED BY: AQUILES CARRERA MD DATE: 03/29/19 1145 Course & Med Decision Making Course & Med Decision Making Pertinent Labs and Imaging studies reviewed. (See chart for details) Evaluation of patient in ER showed 78-year-old male patient with history of lung cancer and lobectomy few months ago presented to ER with complaining of right lower chest wall pain since yesterday. Patient had reproducible lower chest pain without deformity or emphysema. Patient felt better with treatment in ER. Labs andchest x-ray and CT of chest was unremarkable except for old thoracic compression fracture and a fracture. Plan discharge patient home to diagnose of chest wall pain and patient was advised to follow-up with his primary care physician and oncologist. Dragon Disclaimer Dragon Disclaimer This electronic medical record was generated, in whole or in part, using a voice recognition dictation system. Departure Departure Impression: Primary Impression: Acute chest wall pain Additional Impressions: Thoracic compression fracture Lung cancer Uncontrolled hypertension Disposition: HOME, SELF-CARE (@1343) Condition: IMPROVED Referrals: ALLAN CLAYTON (PCP) Patient Instructions: Back, Compression Fracture, Chest Wall Pain Additional Instructions: Follow-up with your primary care physician in 3-5 days Return to ER if not getting better Scripts Cyclobenzaprine Hcl (CYCLOBENZAPRINE HCL) 10 Mg Tablet 1 TAB PO TID, #21 TAB Prov: ELDER OLIVO MD 03/29/19 Tramadol Hcl (ULTRAM) 50 Mg Tablet 50 MG PO Q6HRS PRN for PAIN, #14 TAB 0 Refills Prov: ELDER OLIVO MD 03/29/19 Problem Qualifiers Additional Impressions: Thoracic compression fracture Encounter type: subsequent encounter Thoracic vertebra fracture level: unspecified thoracic vertebra Fracture healing: with routine healing Qualified Codes: S22.000D - Wedge compression fracture of unspecified thoracic vertebra, subsequent encounter for fracture with routine healing Lung cancer Laterality: unspecified laterality Lung location: unspecified part of lung Qualified Codes: C34.90 - Malignant neoplasm of unspecified part of unspecified bronchus or lung ELDER OLIVO MD Mar 29, 2019 10:27
[2019-03-29] MEDS ORDERED: fentaNYL PF VIAL 100 MCG/2 ML VIAL IV ONE (10:45)
[2019-03-29 11:08] LABS: BASO # 0.1 x10^3/uL (0.0-0.2); BASO % 1 % (0-3); EOS # 0.1 x10^3/uL (0.0-0.7); EOS % 1 % (0-3); HEMATOCRIT 42.5 % (39.0-53.0); HEMOGLOBIN 14.2 g/dL (13.0-17.5); LYMPH # 1.4 x10^3/uL (1.0-4.8); LYMPH % 10 % (24-48); MEAN CORPUSCULAR HEMOGLOBIN 31 pg (25-35); MEAN CORPUSCULAR HGB CONC 33 g/dL (31-37); MEAN CORPUSCULAR VOLUME 94 fL (79-100); MONO # 1.2 x10^3/uL (0.0-1.1); MONO % 9 % (0-9); NEUT # 11.1 x10^3uL (1.8-7.7); NEUT % 80 % (31-73); PLATELET COUNT 273 x10^3/uL (140-400); RED BLOOD COUNT 4.53 x10^6/uL (4.30-5.70); RED CELL DISTRIBUTION WIDTH 16.9 % (11.5-14.5); WHITE BLOOD COUNT 13.9 x10^3/uL (4.0-11.0)
[2019-03-29 11:15] LABS: CALCIUM 9.5 mg/dL (8.5-10.1); CREATININE 0.9 mg/dL (0.7-1.3); POTASSIUM 4.6 mmol/L (3.5-5.1)
[2019-03-29 11:20] LABS: ALBUMIN/GLOBULIN RATIO 1.2 (1.0-1.7); TOTAL BILIRUBIN 0.5 mg/dL (0.2-1.0); TOTAL PROTEIN 7.4 g/dL (6.4-8.2)
[2019-03-29] MEDS ORDERED: cloNIDine HCL 0.1 MG TABLET PO ONE (11:45)
--- NOTE | 2019-03-29 11:48 | RAD ---
EXAM: CHEST 2 VIEWS. HISTORY: Right chest pain. COMPARISON: 03/03/2019. FINDINGS: Frontal and lateral views of the chest are obtained. Fractures of the right lateral fifth through eighth ribs are not acute but demonstrate no clear healing response yet. Mild underlying parenchymal opacities suggests associated atelectasis or mild contusion. Additional opacities in the right base are unchanged and may represent scarring. Hyperinflation is consistent with chronic obstructive pulmonary disease. There is no pneumothorax. Mild blunting of the costophrenic angles may represent scarring or trace pleural effusions. The heart is not enlarged. There are atherosclerotic calcifications of the aorta. There are multiple mild to moderate mid and upper thoracic compression deformities. IMPRESSION: 1. Right fifth through eighth rib fractures appear subacute. 2. Multiple mild to moderate mid and upper thoracic compression fractures. 3. Chronic obstructive pulmonary disease. 4. Right midlung and basilar atelectasis or scarring. Electronically signed by: Katherine Carrera MD (03/29/2019 11:45 AM) [facility]
[2019-03-29] MEDS ORDERED: CONTRAST GIVEN. MC PRN (12:30)
[2019-03-29] MEDS ORDERED: IOHEXOL 350 MG/ML 100 ML VIAL. IV ONE (12:45)
--- NOTE | 2019-03-29 13:35 | RAD ---
EXAM: CT ANGIOGRAPHY OF THE CHEST WITH AND WITHOUT INTRAVENOUS CONTRAST. HISTORY: Lung cancer, chest pain, elevated d-dimer. TECHNIQUE: Computed tomographic angiography of the chest was performed before and after the intravenous administration of iodinated contrast. 3-D maximum intensity projections were also performed. COMPARISON: 02/13/2019. FINDINGS: Images of the upper abdomen reveal moderate to severe stenosis a few centimeters beyond the origin of the superior mesenteric artery. Bilateral adrenal masses are unchanged measuring 2.4 x 1.7 cm on the left and 1.9 x 1.7 cm on the left. Bone windows reveal there multiple mild to moderate thoracic compression fractures, not clearly changed. A sebaceous cyst is noted along the lower back to the left of midline. No pulmonary emboli are identified. There is no aortic dissection or aneurysm. There are changes of right middle lobectomy. There are no pathologically enlarged mediastinal or axillary lymph nodes. There is no pleural or pericardial effusion. The heart is not enlarged. There is mild distal esophageal wall thickening. A groundglass density nodule in the left upper lobe measures 1.1 cm and is not clearly changed. Centrilobular emphysema is mild to moderate. There is mild to moderate diffuse bronchial wall thickening. A groundglass density nodule in the right lower lobe medially on image 103 is stable at 4 mm. IMPRESSION: 1. No pulmonary embolism. 2. Mild to moderate centrilobular emphysema. Changes of acute or chronic bronchitis. 3. Groundglass density nodules in the left upper and right lower lobe are stable. Attention on further follow-up. 4. Bilateral adrenal masses are not clearly changed since at least August 2018. 5. 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 *One or more of the following individualized dose reduction techniques were utilized for this examination: 1. Automated exposure control. 2. Adjustment of the mA and/or kV according to patient size. 3. Use of iterative reconstruction technique. Electronically signed by: Katherine Carrera MD (03/29/2019 1:32 PM) [facility]
[2019-03-29] MEDS ORDERED: TRAM-48 PO (13:45)
[2019-03-29] MEDS ORDERED: CYCL10TA2 PO (13:46)
[2019-03-29 14:06] VITALS: BP 141/90
--- NOTE | 2019-03-31 07:48 | EKG ---
[facility] [address] [place] [address] Test Date: 2019-03-29 Test Time: 10:48:08 Pat Name: ASA RAYMUNDO Department: Room: Gender: M Strategy Intern: : 1940 Requested By: ELDER OLIVO Order Number: [id number] Reading MD: Measurements Intervals [place] Rate: 53 P: 33 HI: 210 QRS: 31 QRSD: 82 T: 48 QT: 420 QTc: 396 Interpretive Statements SINUS RHYTHM NORMAL ECG No previous ECG available for comparison
== END 2019-03-29 14:25 | disposition home or self-care (01) ==
LOC: ER 10:00
DX: S22.000D Wedge compression fracture of unspecified thoracic vertebra, subsequent encounter for fracture with routine healing (principal); R07.81 Pleurodynia; I10 Essential (primary) hypertension; C34.90 Malignant neoplasm of unspecified part of unspecified bronchus or lung; I48.91 Unspecified atrial fibrillation; X58.XXXD Exposure to other specified factors, subsequent encounter
CPT/HCPCS: 36415; 71046; 71275; 80053; 82550; 83690; 83735; 83880; 84484; 85025; 85379; 93005; 96374; 99285; J3010; Q9967

== ENCOUNTER → 2019-07-17 | Outpatient (CLI) | payer MEDICARE ==
[~2019-07-17] MED LIST changes: +CYCL10TA2 PO; +LISI1TAB20 PO; -LISI1TAB7 PO; +TRAM-48 PO
--- NOTE | 2019-07-17 16:20 | RAD ---
CT CHEST WO CONTRAST Indication: Lung cancer Technique: Noncontrast CT imaging was performed of the chest, multiplanar reconstruction images submitted. One or more of the following individualized dose reduction techniques were utilized for this examination: 1. Automated exposure control 2. Adjustment of the mA and/or kV according to patient size 3. Use of iterative reconstruction technique. Comparison: April 28, 2019 Findings: There again has been right middle lobectomy. Somewhat groundglass density of the right lower lobe in a bandlike distribution is stable in appearance. Tiny subsolid nodule of the right upper lobe 0.5 cm image 28 series 2 is stable. There is likely fibrotic change closer to the apices, somewhat nodular focus of density near the left apex 0.6 cm image 10 series 2 unchanged. 0.4 cm left upper lobe subpleural nodule image 12 series 2 is unchanged. There is no new suspicious pulmonary nodularity, pleural or pericardial effusion, pneumothorax, infiltrate. Major airways are patent. There is emphysema with upper zone predominance. There is somewhat ectatic tubular ascending thoracic aorta about 3.8 cm, stable. There is severe coronary calcification. There is no abnormality of the thyroid gland. There are some subcentimeter mediastinal nodes, unchanged. There are bilateral adrenal masses are similar, on the right up to 1.9 cm on the left about 1.7 cm, density measurements more suggestive of adenomas. There is again some calcified plaque of the proximal superior mesenteric artery. There is similar degree of multilevel thoracic compression deformity T8, T7, T5, T4. Similar deformity of right ribs is likely on postsurgical basis. IMPRESSION: 1. Thoracic findings are unchanged, stable foci of somewhat nodular density bilaterally as stated. There is emphysema. 2. There are stable bilateral adrenal nodules, likely adenomas. 3. There is coronary calcification. 4. There is stable ectatic tubular ascending thoracic aorta. 5. There is again multilevel thoracic compression deformity. Electronically signed by: Isaac Rincon MD (07/17/2019 4:17 PM) [place] [id number]
== END | disposition home or self-care (01) ==
LOC: CT 09:33
PROVIDERS: ATTEND Internal Medicine Hematology & Oncology
DX: C34.2 Malignant neoplasm of middle lobe, bronchus or lung (principal); J43.8 Other emphysema; I25.10 Atherosclerotic heart disease of native coronary artery without angina pectoris
CPT/HCPCS: 71250

== ENCOUNTER → 2020-02-17 | Outpatient (CLI) | payer MEDICARE ==
--- NOTE | 2020-02-17 11:25 | RAD ---
CT of the chest without contrast 02/17/2020 INDICATION: Malignant neoplasm, right lung. COMPARISON STUDY: CT chest without contrast July 17, 2019. TECHNIQUE: Multidetector CT imaging of the chest was performed without contrast. FINDINGS: Heart size is within normal limits. No acute pericardial effusion is seen. Scattered coronary calcification is noted. Scattered small mediastinal lymph nodes are seen, not pathologically enlarged by size criterion. The appearance is similar with respect to comparison study. No pathologically enlarged mediastinal adenopathy is seen. There is no pneumothorax or pleural effusion. Emphysematous changes are similar to comparison exam. Scattered areas of scarring and atelectasis seen. Scattered subcentimeter groundglass opacities are unchanged. No new nodules or masses are identified. Postoperative changes to the right hemithorax noted. Mild fullness in the adrenal glands is unchanged. No acute abnormalities of the upper abdomen are identified. No acute osseous changes are seen multiple thoracic compression deformities are similar to comparison exam. IMPRESSION: Stable appearance of the thorax without evidence of recurrent or metastatic disease. CT DOSING PQRS STATEMENT: One or more of the following individualized dose reduction techniques were utilized for this examination: 1. Automated exposure control 2. Adjustment of the mA and/or kV according to patient size 3. Use of iterative reconstruction technique Electronically signed by: Duncan Kennedy MD (02/17/2020 11:22 AM) [id number]
== END | disposition home or self-care (01) ==
LOC: CT 10:49
PROVIDERS: ATTEND Internal Medicine Hematology & Oncology
DX: C34.2 Malignant neoplasm of middle lobe, bronchus or lung (principal)
CPT/HCPCS: 71250

== ENCOUNTER → 2020-08-18 | Outpatient (CLI) | payer MEDICARE ==
[~2020-08-18] MED LIST changes: -AMIO200T4 PO; +AMIO200T6 PO; +AMLO-187 PO; -AMLO10TA8 PO; -NALO25TA2 PO; +NALO25TA4 PO
--- NOTE | 2020-08-18 11:52 | RAD ---
EXAM: Chest CT without intravenous contrast. HISTORY: Lung cancer restaging. TECHNIQUE: Computed tomographic images of the chest were obtained without contrast. Multiplanar reformatting was performed. *One or more of the following individualized dose reduction techniques were utilized for this examination: 1. Automated exposure control. 2. Adjustment of the mA and/or kV according to patient size. 3. Use of iterative reconstruction technique. COMPARISON: 02/17/2020. FINDINGS: There are stable findings consistent with partial right lung resection. There are associated right chest wall thoracotomy changes. There is emphysema. There has been interval increase in a 7 mm groundglass nodular opacity at the left lung apex adjacent to a linear pleural-based opacity. Given the presence of adjacent pleural parenchymal scarring, this is likely benign. There are few tiny peripheral groundglass and linear opacities which are benign in appearance. There is no infiltrate, pleural effusion or pneumothorax. The heart is normal in size. There is a stable trace pericardial effusion. There is calcified atherosclerotic plaque involving the coronary arteries. There is no lymphadenopathy. There is no suspicious liver lesion. There is bilateral adrenal gland thickening or there are adrenal adenomas. This is stable in appearance. There is a splenic granuloma. There are degenerative changes throughout the spine. There are chronic thoracic vertebral compression fractures. No acute fracture is seen. There is suspected bone demineralization. IMPRESSION: 1. Stable findings consistent with right partial lung resection. 2. Slight interval increase in a 7 mm groundglass opacity at the left lung apex adjacent to pleural parenchymal scarring. The imaging appearance favors benignity. There are few additional nonspecific groundglass and pleural-based opacities which are stable in appearance. Attention the time of follow-up in 3-6 months is recommended. 3. Emphysema. Electronically signed by: Brooklyn Taylor MD (08/18/2020 11:49 AM) [id number]
== END ==
LOC: CT 10:46
PROVIDERS: ATTEND Internal Medicine Hematology & Oncology
DX: C34.2 Malignant neoplasm of middle lobe, bronchus or lung (principal); J43.9 Emphysema, unspecified; I25.10 Atherosclerotic heart disease of native coronary artery without angina pectoris; M48.54XA Collapsed vertebra, not elsewhere classified, thoracic region, initial encounter for fracture
CPT/HCPCS: 71250

== ENCOUNTER → 2020-12-28 | Outpatient (CLI) | payer MEDICARE ==
--- NOTE | 2020-12-28 12:31 | RAD ---
CT of the chest without contrast 12/28/2020 INDICATION: History of lung cancer. COMPARISON STUDY: CT of the chest without contrast August 18, 2020 TECHNIQUE: Multidetector CT imaging of the chest was performed without contrast FINDINGS: Previously described 7 mm predominantly groundglass nodular opacity left lung apex appears slightly d ecreased in the interim. Multifocal mild pleural-parenchymal scarring is seen. Centrilobular emphysem a again noted. There are a few scattered sub-5 mm groundglass opacities which appear to be grossly st able. Reference lesion can be seen in the medial posterior right lower lobe on axial image 38 measuri ng between 5 and 6 mm on today's exam, unchanged in the interim since comparison study. Small nodule adjacent to the esophagus within the right upper lobe measuring 7 mm in diameter is grossly unchanged allowing for differences in slice selection. (Axial image 12). No new nodules or masses are identif ied. No enlarging nodules or masses are seen. There is no pneumothorax, pleural effusion, or acute in filtrate. Heart is top normal in size. Trace pericardial fluid noted. Dense coronary calcification noted. Scatt ered small mediastinal lymph nodes are seen without evidence of pathologically enlarged adenopathy. L imited visualization of the upper abdomen demonstrates stable fullness in the right adrenal gland wit h attenuation characteristics consistent with a fat-containing adenoma. Similar but less prominent fi ndings are noted on the contralateral side. No acute abnormalities of the upper abdomen are identifie d. Subcutaneous ovoid lesion in the back is mildly low density and may represent sebaceous cysts. The appearance is unchanged. Correlate with physical exam findings. No acute osseous changes are ident ified. Compression deformities of the T4, 5, 7, and 8 vertebral bodies noted. Morphology is grossly u nchanged. IMPRESSION: 1. Apparent slight interval decrease in the previously described 7 mm nodule in the left lung apex. N odule now measures approximately 5 to 6 mm. mm. Stable approximately 7 mm nodule in the right upper lobe abutting the esophagus. Other scattered smaller groundglass opacities are also stable as well as described above. Recommend continued surveillance . 2. Centrilobular emphysema 3. Other chronic changes noted above. CT DOSING PQRS STATEMENT: One or more of the following individualized dose reduction techniques were utilized for this examinat ion: 1. Automated exposure control 2. Adjustment of the mA and/or kV according to patient size 3. Use of iterative reconstruction technique Electronically signed by: Duncan Kennedy MD (12/28/2020 12:29 PM) [id number]
== END ==
LOC: CT 11:12
PROVIDERS: ATTEND Internal Medicine Hematology & Oncology
DX: C34.2 Malignant neoplasm of middle lobe, bronchus or lung (principal); J43.2 Centrilobular emphysema
CPT/HCPCS: 71250

== ENCOUNTER → 2021-05-26 | Outpatient (CLI) | payer MEDICARE ==
--- NOTE | 2021-05-26 10:08 | RAD ---
PQRS Compliance Statement: One or more of the following individualized dose reduction techniques were utilized for this examinat ion: 1. Automated exposure control 2. Adjustment of the mA and/or kV according to patient size 3. Use of iterative reconstruction technique CT THORAX WO 05/26/2021 8:58 AM Indication: Malignant neoplasm of the lung COMPARISON: CT chest 12/28/2020, 08/18/2020, 02/17/2020 TECHNIQUE: Multiple axial CT images of the chest were obtained without intravenous contrast. Coronal and sagittal reformats are provided. FINDINGS: Mild centrilobular pulmonary emphysema. Mild reticular interstitial changes identified within the rig ht middle lobe and inferior lingula likely subsegmental atelectasis or scarring. No pleural effusions , pulmonary vascular congestion or pneumothorax. There is increase in size of a subpleural solid nonc alcified pulmonary nodule abutting the esophagus along the medial aspect of the right upper lobe kahlil uring 8 mm, previously measuring 7 mm. 6 mm subpleural solid noncalcified pulmonary nodule at the lef t lung apex is stable. Cardiac and mediastinal structures are stable. No new or enlarging thoracic ly mphadenopathy. Three-vessel coronary artery vascular calcifications are present. Upper abdomen is sim ilar in appearance. No suspicious osseous abnormality is identified. Stable compression deformities a t T4, T5, T7 and T8. IMPRESSION: Marginal increase in size of a subpleural solid noncalcified pulmonary nodule in the medial right upp er lobe measuring 8 mm. Further characterization with PET/CT or 3 month follow-up chest CT could be o f benefit. 6 mm solid noncalcified pulmonary nodule identified left lung apex is stable. Electronically signed by: Siena Antonio MD (05/26/2021 10:05 AM) [id number]
== END ==
LOC: CT 09:41
PROVIDERS: ATTEND Internal Medicine Hematology & Oncology
DX: J43.2 Centrilobular emphysema (principal); R91.8 Other nonspecific abnormal finding of lung field; I25.10 Atherosclerotic heart disease of native coronary artery without angina pectoris; M43.8X4 Other specified deforming dorsopathies, thoracic region; C34.2 Malignant neoplasm of middle lobe, bronchus or lung
CPT/HCPCS: 71250

== ENCOUNTER → 2021-06-02 | Outpatient (CLI) | payer MEDICARE ==
[2021-06-02 10:46] LABS: BASO # 0.1 x10^3/uL (0.0-0.2); BASO % 1 % (0-3); EOS # 0.2 x10^3/uL (0.0-0.7); EOS % 2 % (0-3); HEMATOCRIT 45.8 % (39.0-53.0); HEMOGLOBIN 15.1 g/dL (13.0-17.5); LYMPH # 1.7 x10^3/uL (1.0-4.8); LYMPH % 16 % (24-48); MEAN CORPUSCULAR HEMOGLOBIN 33 pg (25-35); MEAN CORPUSCULAR HGB CONC 33 g/dL (31-37); MEAN CORPUSCULAR VOLUME 100 fL (79-100); MONO # 1.1 x10^3/uL (0.0-1.1); MONO % 10 % (0-9); NEUT # 7.8 x10^3/uL (1.8-7.7); NEUT % 72 % (31-73); PLATELET COUNT 236 x10^3/uL (140-400); RED BLOOD COUNT 4.58 x10^6/uL (4.30-5.70); RED CELL DISTRIBUTION WIDTH 12.9 % (11.5-14.5); WHITE BLOOD COUNT 10.9 x10^3/uL (4.0-11.0)
[2021-06-02 10:53] LABS: CALCIUM 9.6 mg/dL (8.5-10.1); GFR 72.1
[2021-06-02 11:00] LABS: ALBUMIN 3.8 g/dL (3.4-5.0); ALBUMIN/GLOBULIN RATIO 1.1 (1.0-1.7); MAGNESIUM 2.2 mg/dL (1.8-2.4); TOTAL BILIRUBIN 0.4 mg/dL (0.2-1.0); TOTAL PROTEIN 7.4 g/dL (6.4-8.2)
== END ==
LOC: ONCLAB 10:20
PROVIDERS: ATTEND Physician Assistant
DX: C34.2 Malignant neoplasm of middle lobe, bronchus or lung (principal); I10 Essential (primary) hypertension
CPT/HCPCS: 36415; 80053; 83735; 84443; 85025

== ENCOUNTER → 2021-06-09 | Outpatient (CLI) | payer MEDICARE ==
--- NOTE | 2021-06-09 16:54 | CARD ---
MR#: [id number] Date of Study: 06/09/2021 Ordering Physician: RADHA BLAKE, Referring Physician: RADHA BLAKE, Tech: Morteza Desai [facility] APPROVED REPORT EXAM: Two-dimensional and M-mode echocardiogram with Doppler and color Doppler. Other Information Quality : FairHR: 101bpm Rhythm : Atrial Fibrillation INDICATION Atrial Fibrillation 2D DIMENSIONS Left Atrium(2D)4.6 (1.6-4.0cm)IVSd0.8 (0.7-1.1cm) Aortic Root(2D)3.4 (2.0-3.7cm)LVDd4.8 (3.9-5.9cm) LVOT Diameter2.0 (1.8-2.4cm)PWd0.7 (0.7-1.1cm) LVDs3.1 (2.5-4.0cm)FS (%) 34.1 % SV66.2 mlLVEF(%)63.1 (>50%) Aortic Valve AoV Peak Margarito.124.1cm/sAoV VTI23.5cm AO Peak GR.6.2mmHgLVOT Peak Margarito.97.1cm/s AO Mean GR.3mmHgAVA (VMAX)2.54cm2 Mitral Valve MV E Nnmakfxy64.8cm/sMV E Peak Gr.5mmHg MV DECEL [id number] A Ipbinsxu66.1cm/s MV E Mean Gr.2mmHgE/A Ratio2.3 Pulmonary Valve PV Peak Rqmbdhyw365.8cm/s Tricuspid Valve TR P. Egbdjanq534ze/sTR Peak Gr.14mmHg LEFT VENTRICLE The left ventricle is normal size. There is normal left ventricular wall thickness. The left ventricu lar systolic function is normal and the ejection fraction is within normal range. EF 55% There is nor mal LV segmental wall motion. Tissue Doppler imaging reveals moderate left ventricular diastolic dysf unction. No left ventricle thrombus noted on this study. There is no ventricular septal defect visual ized. There is no left ventricular aneurysm. There is no mass noted in the left ventricle. RIGHT VENTRICLE The right ventricle is normal size. There is normal right ventricular wall thickness. The right ventr icular systolic function is normal. ATRIA The left atrium is moderately dilated. The right atrium size is normal. The interatrial septum is int act with no evidence for an atrial septal defect or patent foramen ovale as noted on 2-D or Doppler i maging. AORTIC VALVE The aortic valve is mildly sclerotic. Doppler and Color Flow revealed no significant aortic regurgita tion. There is no significant aortic valvular stenosis. There is no aortic valvular vegetation. MITRAL VALVE The mitral valve is normal in structure and function. There is no evidence of mitral valve prolapse. There is no mitral valve stenosis. Doppler and Color-flow revealed trace mitral regurgitation. TRICUSPID VALVE The tricuspid valve is normal in structure and function. Doppler and Color Flow revealed no tricuspid valve regurgitation noted. There is no tricuspid valve prolapse or vegetation. There is no tricuspid valve stenosis. PULMONIC VALVE Doppler and Color Flow revealed no pulmonic valvular regurgitation. There is no pulmonic valvular karrie nosis. GREAT VESSELS The aortic root is normal in size. The ascending aorta is normal in size. The IVC is normal in size a nd collapses >50% with inspiration. PERICARDIAL EFFUSION There is no pleural effusion. There is no evidence of significant pericardial effusion. Critical Notification Critical Value: No <Conclusion> The left ventricular systolic function is normal and the ejection fraction is within normal range. EF 55% There is normal LV segmental wall motion. Signed by : Easton Correa, Electronically Approved : 06/09/2021 16:54:16
== END ==
LOC: ECHO 08:44
PROVIDERS: ATTEND Internal Medicine Cardiovascular Disease
DX: I35.1 Nonrheumatic aortic (valve) insufficiency (principal)
CPT/HCPCS: 93306

== ENCOUNTER → 2021-08-15 | Outpatient (CLI) | payer MEDICARE ==
[~2021-08-15] MED LIST changes: +AMIO200T53 PO; -AMIO200T6 PO; +CYCL10TA19 PO; -CYCL10TA2 PO; -LISI1TAB20 PO; +LISI1TAB39 PO
--- NOTE | 2021-08-15 11:10 | RAD ---
EXAM: CT CHEST WITHOUT CONTRAST HISTORY: Reevaluate lung nodule COMPARISON: CT chest 05/26/2021 TECHNIQUE: Helical CT of the chest performed without contrast. Coronal and sagittal reformats were o btained. One or more of the following individualized dose reduction techniques were utilized for this examinat ion: 1. Automated exposure control 2. Adjustment of the mA and/or kV according to patient size 3. Use of iterative reconstruction technique. FINDINGS: Thyroid gland and thoracic inlet: Normal. Heart and great vessels: Heart is normal size. There are coronary artery calcifications. No pericardi al effusion. The thoracic aorta is normal in caliber. Mild aortic calcified atherosclerosis. Mediastinum and carlyle: No mediastinal or hilar lymphadenopathy. Lungs and pleura: There are surgical changes of right middle lobectomy. The 9 mm nodule in the medial right apex abutting the mediastinum is unchanged (image 71). A 6 mm nodule in the left apex is uncha nged (image 50). There is a 3 mm nodule in the medial left apex, unchanged allowing for differences i n slice thickness (image 56). Linear scarring or atelectasis in the left upper lobe and along the rig ht major fissure are unchanged. There is mild centrilobular and paraseptal emphysema. The central air ways are clear. No pleural effusion. Chest wall and axillae: No axillary lymphadenopathy. Chest wall is unremarkable. Upper abdomen: Unremarkable. Bones: There are T4 and T5 compression fractures with 40-50 percent vertebral body height loss, T7 co mpression fracture with 65 percent vertebral body height loss, and T8 compression fracture with 40 pe rcent vertebral body height loss are all unchanged. No retropulsion of cortex. Mild thoracic kyphosis . There is degenerative disc disease in the upper lumbar spine. IMPRESSION: 1. Unchanged suspicious 9 mm nodule in the medial right apex abutting the pleura. Recommend 3 month follow-up CT of the chest or PET/CT to further evaluate. 2. Unchanged 6 mm and 3 mm nodule in the left apex. 3. Surgical changes of right middle lobectomy. 4. Unchanged mild emphysema. 5. Unchanged old thoracic compression fractures. Electronically signed by: Celina Irizarry MD (08/15/2021 11:08 AM) [id number]
== END ==
LOC: CT 09:44
PROVIDERS: ATTEND Physician Assistant
DX: C34.2 Malignant neoplasm of middle lobe, bronchus or lung (principal); S22.040A Wedge compression fracture of fourth thoracic vertebra, initial encounter for closed fracture; S22.050A Wedge compression fracture of T5-T6 vertebra, initial encounter for closed fracture; R91.8 Other nonspecific abnormal finding of lung field; J43.2 Centrilobular emphysema; I25.10 Atherosclerotic heart disease of native coronary artery without angina pectoris; M51.36 Other intervertebral disc degeneration, lumbar region; M40.204 Unspecified kyphosis, thoracic region; I70.0 Atherosclerosis of aorta; Z98.890 Other specified postprocedural states; X58.XXXA Exposure to other specified factors, initial encounter; Y93.89 Activity, other specified; Y92.89 Other specified places as the place of occurrence of the external cause; Y99.8 Other external cause status
CPT/HCPCS: 71250

== ENCOUNTER → 2021-09-02 | Outpatient (CLI) | payer MEDICARE ==
[2021-09-02 10:54] LABS: BASO % 0 % (0-3); EOS # 0.2 x10^3/uL (0.0-0.7); EOS % 2 % (0-3); HEMATOCRIT 45.9 % (39.0-53.0); HEMOGLOBIN 14.9 g/dL (13.0-17.5); LYMPH # 1.9 x10^3/uL (1.0-4.8); LYMPH % 18 % (24-48); MEAN CORPUSCULAR HEMOGLOBIN 33 pg (25-35); MEAN CORPUSCULAR HGB CONC 33 g/dL (31-37); MEAN CORPUSCULAR VOLUME 101 fL (79-100); MONO % 10 % (0-9); NEUT # 7.1 x10^3/uL (1.8-7.7); NEUT % 70 % (31-73); PLATELET COUNT 226 x10^3/uL (140-400); RED BLOOD COUNT 4.54 x10^6/uL (4.30-5.70); RED CELL DISTRIBUTION WIDTH 12.8 % (11.5-14.5); WHITE BLOOD COUNT 10.2 x10^3/uL (4.0-11.0)
[2021-09-02 11:07] LABS: CALCIUM 8.6 mg/dL (8.5-10.1); CREATININE 0.9 mg/dL (0.7-1.3); GFR 81.4; POTASSIUM 4.8 mmol/L (3.5-5.1)
[2021-09-02 11:16] LABS: ALBUMIN 3.7 g/dL (3.4-5.0); ALBUMIN/GLOBULIN RATIO 1.1 (1.0-1.7); TOTAL BILIRUBIN 0.5 mg/dL (0.2-1.0); TOTAL PROTEIN 7.2 g/dL (6.4-8.2)
== END ==
LOC: ONCLAB 10:31
PROVIDERS: ATTEND Internal Medicine Hematology & Oncology
DX: C34.2 Malignant neoplasm of middle lobe, bronchus or lung (principal)
CPT/HCPCS: 36415; 80053; 85025

== ENCOUNTER → 2021-11-29 | Outpatient (CLI) | payer MEDICARE, OTHER ==
--- NOTE | 2021-11-29 09:46 | RAD ---
EXAM: Chest CT without intravenous contrast. HISTORY: Pulmonary nodule. TECHNIQUE: Computed tomographic images of the chest were obtained without contrast. Multiplanar refor matting was performed. *One or more of the following individualized dose reduction techniques were utilized for this examina tion: 1. Automated exposure control. 2. Adjustment of the mA and/or kV according to patient size. 3. Use of iterative reconstruction technique. COMPARISON: 08/15/2021 and 02/13/2019. FINDINGS: The heart is upper normal in size. There is a slight increased trace pericardial effusion. There is coronary artery calcification. The aorta is normal in caliber. There are stable nonspecific mediastinal lymph nodes. For reference purposes, there is a 2.0 cm subcarinal lymph node. There is a small amount of suspected aspirated mucus within the right aspect of the trachea. There is an anastom otic suture line along the right mid thorax due to partial right lung resection. There is no pleural effusion or pneumothorax. There is moderate to severe emphysema with biapical pleural parenchymal sca rring and subpleural bleb formation. There is a stable 10 mm nodule abutting the pleural of the medial right lung apex, allowing for diffe rences in measurement technique. There is a stable 4 mm pleural-based nodule within the medial left l jules apex. There is a stable 3 mm pleural-based nodule within the superior segment of the left lower l obe. There are several stable pleural-based nodular opacities along the posterior right upper lobe me asuring up to 5 mm, likely due to pleural parenchymal scarring. There is a 6 mm groundglass nodular o pacity within the peripheral lateral right upper lobe, stable in appearance. There is stable linear scarring along the pleural fissures and within the lingula and lung bases. The re is new suspected partially consolidated groundglass and nodular infiltrate within the lingula. The re is stable suspected scarring within the anterior lateral right lower lobe. There is no acute finding involving the upper abdomen. There is bilateral adrenal gland thickening or there are bilateral adrenal nodules measuring 2.2 cm on the right and 1.8 cm of the left. There are degenerative changes throughout the spine. There is a chronic severe wedge compression fracture of T7 . There are chronic moderate to severe compression fractures of T4 and T5. There is a chronic mild/mo derate compression fracture of T8. There is bone demineralization. There are multiple chronic appeari ng bilateral rib fractures. IMPRESSION: 1. Partially consolidated infiltrate within the lingula. Follow-up to confirm resolution. 2. Multiple bilateral pulmonary nodules, the largest of which is a 10 mm pleural-based nodule within the medial right lung apex. These are stable when allowing for differences in measurement technique. Continued short-term follow-up with a CT in 3 months is recommended. Alternatively, the largest nodul e may be within limits for assessment with PET/CT. 3. Emphysema with multifocal pleural parenchymal scarring. 4. Partial right lung resection. 5. Multiple chronic vertebral compression fractures and chronic rib fractures superimposed on bone de mineralization. 6. Coronary artery calcification. 7. Slight increased trace pericardial effusion. 8. Stable bilateral adrenal gland thickening or adrenal nodules. The nearly 3 year course of stabilit y favors benignity. Electronically signed by: Brooklyn Taylor MD (11/29/2021 9:44 AM) [id number]
== END ==
LOC: CT 08:13
PROVIDERS: ATTEND Internal Medicine Hematology & Oncology
DX: S22.43XA Multiple fractures of ribs, bilateral, initial encounter for closed fracture (principal); R91.8 Other nonspecific abnormal finding of lung field; I25.10 Atherosclerotic heart disease of native coronary artery without angina pectoris; E27.8 Other specified disorders of adrenal gland; J43.9 Emphysema, unspecified; M48.54XA Collapsed vertebra, not elsewhere classified, thoracic region, initial encounter for fracture; X58.XXXA Exposure to other specified factors, initial encounter; Y93.89 Activity, other specified; Y92.89 Other specified places as the place of occurrence of the external cause; Y99.8 Other external cause status; Z90.2 Acquired absence of lung [part of]
CPT/HCPCS: 71250

== ENCOUNTER → 2021-12-02 | Day surgery (SDC) | payer MEDICARE ==
[~2021-12-02] VITALS: Ht 185.4 cm; Wt 98.6 kg
[~2021-12-02] MED LIST changes: +GLYCOPYRROLATE 1 MG/5 ML VIAL. ONE; +IV RINGERS,LACTATED 1000ML 1,000 ML IV SCH; +LINA72CA PO; +PROPOFOL 10 MG/ML (20ML) VIAL. IV ONE
[2021-12-02 06:43] VITALS: BP 216/87
[2021-12-02 08:28] VITALS: BP 122/73
--- NOTE | 2021-12-02 13:24 | HP ---
DATE OF SERVICE: 12/02/2021 ADMIT DATE: 12/02/2021 UPDATED HISTORY AND PHYSICAL REASON FOR CONSULTATION: Dysphagia. HISTORY OF PRESENT ILLNESS: A 81-year-old male whose past medical history is significant for organic heart disease, constipation, hypertension, dysphagia, status post lung and eye surgery who is seen with recurrent dysphagia in the upper esophagus. It is worsening, associated with solids, not with liquids. Risk factors do not include tobacco or alcohol use, was positive for caffeine use. He has had ongoing intermittent dysphagia. Minimal heartburn is present. Weight and appetite are stable. He is otherwise without additional complaints. PAST MEDICAL HISTORY: Organic heart disease, constipation, hypertension. ALLERGIES: None. MEDICATIONS: Include amiodarone, aspirin, cyclobenzaprine, Linzess, metoprolol, Movantik, omeprazole, oxycodone, tramadol. REVIEW OF SYSTEMS: Per records. PHYSICAL EXAMINATION: GENERAL: Reveals a well-nourished, well-developed white male who is alert, cooperative, in no acute distress. VITAL SIGNS: Temp is 97.4, pulse 92, respiratory rate 20. LUNGS: Clear. CARDIOVASCULAR: Reveals an S1, S2, without S3, S4 or appreciable murmur. ABDOMEN: Reveals a soft abdomen, normal bowel sounds, without appreciable hepatosplenomegaly. EXTREMITIES: Reveals no cyanosis, clubbing or edema. IMPRESSION: Dysphagia, etiology is to be determined. Differential includes Schatzki's ring malignancy, Zenker's diverticulum, achalasia, eosinophilic esophagitis, Cameron's stricture and presbyesophagus. We therefore recommend upper endoscopy, possible biopsy and dilatation. Risks and benefits have been previously discussed. The patient understands perforation and is willing to proceed. If dilatation and/or biopsies are unrevealing, further imaging and possible speech pathology evaluation would be pursued. BOBBY/SALAZAR/TRISH DR: Geno TID: [id number]
--- NOTE | 2021-12-05 16:08 | PATHOLOGY ---
[facility] Accession Number: [id number] . 01 Material submitted: . esophagus - DISTAL ESOPHAGUS BIOPSY. Modifiers: distal . 01 Clinical history: . DYSPHAGIA EGD . 02 Diagnosis: Esophageal biopsies, distal esophagus: - Reflux changes. (JPM:maged; 12/05/2021) MBR 12/05/2021 1334 Local . 02 Comment: Sections of the distal esophageal biopsy reveal multiple segments of focally tangentially oriented hyperplastic squamous esophageal mucosa. The findings are consistent with reflux esophagitis. There is no evidence of Cameron's change, dysplasia or malignancy. (JPM:maged; 12/05/2021) . 02 Electronically signed: . Tony Nathan MD, Pathologist NPI- [id number] . 01 Gross description: . Received in formalin labeled "Eduardo Ross, distal esophagus biopsy" are multiple blankenship-brown soft tissue fragments measuring in aggregate 2.2 x 0.3 x 0.2 cm. The specimen is submitted entirely in A1. ([facility]; 12/04/2021) GZA/GZA 12/04/2021 1509 Local . 02 Pathologist provided ICD-10: K21.00 . 02 CPT . 187759 Specimen Comment: A courtesy copy of this report has been sent to [phone], [phone] Specimen Comment: [id number] Specimen Comment: Report sent to / DR CLAYTON Performed at: 01 [facility] [address], [place] [id number] MD Jeff Wiggins MD Phone: [phone] Performed at: 02 [facility] [address], [place] [id number] MD Tony Nathan MD Phone: [phone]
== END | disposition home or self-care (01) ==
LOC: ENDOS 06:27
PROVIDERS: ATTEND Internal Medicine Gastroenterology
DX: R13.10 Dysphagia, unspecified (principal); K21.00 Gastro-esophageal reflux disease with esophagitis, without bleeding; K29.50 Unspecified chronic gastritis without bleeding; K31.89 Other diseases of stomach and duodenum; I11.9 Hypertensive heart disease without heart failure; J44.9 Chronic obstructive pulmonary disease, unspecified; Z87.891 Personal history of nicotine dependence; Z79.82 Long term (current) use of aspirin; Z79.899 Other long term (current) drug therapy; Z98.890 Other specified postprocedural states
CPT/HCPCS: 43239; 43450; J2704; J3490

== ENCOUNTER → 2022-02-28 | Outpatient (CLI) | payer MEDICARE ==
[2021-12-02 08:28] VITALS: BP 122/73
[~2022-02-28] MED LIST changes: -GLYCOPYRROLATE 1 MG/5 ML VIAL. ONE; -IV RINGERS,LACTATED 1000ML 1,000 ML IV SCH; -OMEP20TA8 PO; +OMEP20TA91 PO; -PROPOFOL 10 MG/ML (20ML) VIAL. IV ONE
--- NOTE | 2022-02-28 14:38 | RAD ---
CT THORAX WO History: Lung nodule Comparison: 11/29/2021, 08/15/2021, 12/28/2020, 08/18/2020. History of lung cancer and lobectomy. Technique: Noncontrast CT of the chest. Findings: Assessment is limited by lack of IV contrast. Cardiovascular: Normal caliber aorta with moderate calcification. Moderate to heavy coronary artery c alcification. Normal heart size. Trace pericardial fluid. Mediastinum and carlyle: Postsurgical changes from right middle lobectomy. No enlarged adenopathy. The t hyroid is unremarkable. Mild distal esophageal wall thickening. Airways, lungs and pleura: Linear stranding in the distal trachea consistent with inspissated secreti ons. Right middle lobectomy changes. Mild emphysema. Bilateral left apical linear scarring. Redemonst rated 10 mm nodule adjacent to the medial pleural surface at the right upper lobe (axial 14). This ap pears similar in size compared to December 2020 however enlarged from August 2020. Additional previous ly described nodules are not significantly changed. No new or enlarging pulmonary nodules Subtle impr ovement in lingular consolidations with some persistent atelectatic scarring in the lingula. Upper abdomen: Bilateral adrenal thickening versus lipid rich adenomas. Perinephric fat stranding. Osseous structures and soft tissues: Redemonstrated multiple thoracic vertebral compression fractures including T4, T5, T7 and T8. No new fractures are identified. Healed right rib fractures. Impression: 1. Improvement of patchy lingular consolidation with some persistent atelectatic scarring, likely re presents improvement of infectious or inflammatory process. 2. Continued stability of 10 mm right upper lobe nodule adjacent to the pleural surface. Recommend c ontinued surveillance per oncology protocol. 3. Right middle lobectomy changes for prior lung cancer. 4. Additional chronic findings including emphysema, moderate to heavy coronary artery calcification, stable bilateral adrenal thickening, patulous distal esophagus with wall thickening, and thoracic ve rtebral body compression fractures. ------ Exposure: One or more of the following individualized dose reduction techniques were utilized for thi s examination: 1. Automated exposure control 2. Adjustment of the mA and/or kV according to patient size 3. Use of iterative reconstruction technique. Electronically signed by: Vaughn Lee MD (02/28/2022 2:35 PM) [id number]
== END ==
LOC: CT 08:07
PROVIDERS: ATTEND Internal Medicine Hematology & Oncology
DX: C34.2 Malignant neoplasm of middle lobe, bronchus or lung (principal); J43.9 Emphysema, unspecified; R91.1 Solitary pulmonary nodule; I25.10 Atherosclerotic heart disease of native coronary artery without angina pectoris; K22.89 Other specified disease of esophagus; Z90.2 Acquired absence of lung [part of]; S22.000A Wedge compression fracture of unspecified thoracic vertebra, initial encounter for closed fracture; X58.XXXA Exposure to other specified factors, initial encounter; Y93.89 Activity, other specified; Y92.89 Other specified places as the place of occurrence of the external cause; Y99.8 Other external cause status
CPT/HCPCS: 71250

== ENCOUNTER → 2022-03-03 | Outpatient (CLI) | payer MEDICARE, OTHER ==
[2021-12-02 08:28] VITALS: BP 122/73
[2022-03-03 11:10] LABS: BASO # 0.1 x10^3/uL (0.0-0.2); BASO % 1 % (0-3); EOS # 0.2 x10^3/uL (0.0-0.7); EOS % 2 % (0-3); HEMATOCRIT 45.5 % (39.0-53.0); HEMOGLOBIN 15.2 g/dL (13.0-17.5); LYMPH # 1.9 x10^3/uL (1.0-4.8); LYMPH % 20 % (24-48); MEAN CORPUSCULAR HEMOGLOBIN 33 pg (25-35); MEAN CORPUSCULAR HGB CONC 34 g/dL (31-37); MEAN CORPUSCULAR VOLUME 99 fL (79-100); MONO # 0.9 x10^3/uL (0.0-1.1); MONO % 9 % (0-9); NEUT # 6.6 x10^3/uL (1.8-7.7); NEUT % 69 % (31-73); PLATELET COUNT 251 x10^3/uL (140-400); RED BLOOD COUNT 4.61 x10^6/uL (4.30-5.70); RED CELL DISTRIBUTION WIDTH 12.8 % (11.5-14.5); WHITE BLOOD COUNT 9.6 x10^3/uL (4.0-11.0)
[2022-03-03 11:22] LABS: CALCIUM 8.9 mg/dL (8.5-10.1); GFR 72.1; POTASSIUM 4.4 mmol/L (3.5-5.1)
[2022-03-03 11:28] LABS: ALBUMIN 3.6 g/dL (3.4-5.0); ALBUMIN/GLOBULIN RATIO 0.9 (1.0-1.7); MAGNESIUM 2.1 mg/dL (1.8-2.4); PHOSPHORUS 2.5 mg/dL (2.6-4.7); TOTAL BILIRUBIN 0.5 mg/dL (0.2-1.0); TOTAL PROTEIN 7.6 g/dL (6.4-8.2)
[2022-03-03 12:58] LABS: PLT ESTIMATE ADEQUATE (ADEQUATE)
== END ==
LOC: ONCLAB 10:43
PROVIDERS: ATTEND Physician Assistant
DX: C34.2 Malignant neoplasm of middle lobe, bronchus or lung (principal)
CPT/HCPCS: 36415; 80053; 83615; 83735; 84100; 85025